=== PATIENT | female | born 1945 ===

== ENCOUNTER → 2019-12-21 09:03 | Outpatient (CLI) | payer MEDICARE, OTHER, SELFPAY ==
[2019-12-21 09:57] LABS: Add Manual Diff / Slide Review NO; Basophils Absolute Auto 0 /uL (0-100); Basophils Percent Auto 0.3 % (0-2); Eosinophils Absolute Auto 100 /uL (0-450); Eosinophils Percent Auto 2.3 % (2-4); Hematocrit 39.4 % (36-46); Hemoglobin 13.3 g/dL (12.0-16.0); Lymphocytes Absolute Auto 1700 /uL (1100-4500); Lymphocytes Percent Auto 33.2 % (25-40); Mean Corpuscular HGB Conc 33.8 % (30-36); Mean Corpuscular Hemoglobin 31.4 PG (26-34); Mean Corpuscular Volume 93.1 fL (80-100); Monocytes Absolute Auto 300 /uL (0-900); Monocytes Percent Auto 6.1 % (3-14); Neutrophils Absolute Auto 3000 /uL (1500-7000); Neutrophils Percent Auto 58.1 % (50-75); Platelet Count 244 X10^3/uL (150-400); Red Blood Cell Count 4.23 X10^6/uL (4.0-5.2); Red Cell Distribution Width 13.7 % (11.6-14.8); White Blood Cell Count 5.2 X10^3/uL (4.5-11.0)
[2019-12-21 10:03] LABS: Alanine Aminotransferase 46 IU/L (<35); Albumin 3.9 g/dL (3.5-5.0); Albumin Globulin Ratio 1.3 (1.0-2.8); Alkaline Phosphatase 84 U/L (38-126); Aspartate Aminotransferase 39 IU/L (14-36); Bilirubin Total 0.4 mg/dL (0.2-1.3); Blood Urea Nitrogen 15 mg/dL (7-17); Calcium 8.7 mg/dL (8.4-10.2); Carbon Dioxide 30 mmol/L (22-32); Chloride 105 mmol/L (98-107); Cholesterol 207 mg/dL (140-199); Estimated Glomerular Filt Rate > 60.0 mL/min (>60); Globulin 2.9 g/dL (1.7-4.1); Glucose 106 mg/dL (80-110); HDL Cholesterol 93 mg/dL (40-60); HEMOLYSIS < 15 (0-50); LDL Cholesterol Calculated 94 mg/dL (<100); Potassium 4.4 mmol/L (3.4-5.1); Sodium 138 mmol/L (137-145); Total Protein 6.8 g/dL (6.3-8.2); Triglycerides 100 mg/dL (35-150)
[2019-12-21 10:36] LABS: TSH w/ Reflex to FT4 1.85 uIU/mL (0.47-4.68)
== END ==
PROVIDERS: PCP Student in an Organized Health Care Education/Training Program; Referring Provider Student in an Organized Health Care Education/Training Program; Visit Provider Student in an Organized Health Care Education/Training Program
DX: E78.2 Mixed hyperlipidemia (principal); F34.1 Dysthymic disorder; R53.83 Other fatigue
CPT/HCPCS: 36415; 80053; 80061; 84443; 85025

== ENCOUNTER → 2020-02-22 08:40 | Outpatient (CLI) | payer MEDICARE, OTHER, SELFPAY ==
[2020-02-22 09:53] LABS: Alanine Aminotransferase 30 IU/L (<35); Albumin 3.8 g/dL (3.5-5.0); Albumin Globulin Ratio 1.2 (1.0-2.8); Alkaline Phosphatase 85 U/L (38-126); Aspartate Aminotransferase 28 IU/L (14-36); Bilirubin Total 0.3 mg/dL (0.2-1.3); Bilirubin Unconjugated 0.2 mg/dL (0.0-1.1); Globulin 3.1 g/dL (1.7-4.1); HEMOLYSIS < 15 (0-50); Total Protein 6.9 g/dL (6.3-8.2)
== END ==
PROVIDERS: PCP Student in an Organized Health Care Education/Training Program; Referring Provider Student in an Organized Health Care Education/Training Program; Visit Provider Student in an Organized Health Care Education/Training Program
DX: R74.8 Abnormal levels of other serum enzymes (principal)
CPT/HCPCS: 36415; 80076

== ENCOUNTER → 2021-03-10 07:00 | Outpatient (CLI) | payer MEDICARE, BC, SELFPAY ==
[2021-03-10 07:46] LABS: Add Manual Diff / Slide Review NO; Basophils Absolute Auto 0 /uL (0-100); Basophils Percent Auto 0.1 % (0-2); Eosinophils Absolute Auto 0 /uL (0-450); Eosinophils Percent Auto 0.6 % (2-4); Hematocrit 38.9 % (36-46); Hemoglobin 12.9 g/dL (12.0-16.0); Lymphocytes Absolute Auto 1800 /uL (1100-4500); Lymphocytes Percent Auto 30.1 % (25-40); Mean Corpuscular HGB Conc 33.1 % (30-36); Mean Corpuscular Hemoglobin 30.5 PG (26-34); Mean Corpuscular Volume 92.1 fL (80-100); Monocytes Absolute Auto 400 /uL (0-900); Monocytes Percent Auto 7.3 % (3-14); Neutrophils Absolute Auto 3600 /uL (1500-7000); Neutrophils Percent Auto 61.9 % (50-75); Platelet Count 224 X10^3/uL (150-400); Red Blood Cell Count 4.23 X10^6/uL (4.0-5.2); Red Cell Distribution Width 13.3 % (11.6-14.8); White Blood Cell Count 5.9 X10^3/uL (4.5-11.0)
[2021-03-10 08:10] LABS: Alanine Aminotransferase 36 IU/L (<35); Albumin 3.8 g/dL (3.5-5.0); Albumin Globulin Ratio 1.4 (1.0-2.8); Alkaline Phosphatase 90 U/L (38-126); Aspartate Aminotransferase 31 IU/L (14-36); BUN Creatinine Ratio 19.5 (6-22); Bilirubin Total 0.2 mg/dL (0.2-1.3); Blood Urea Nitrogen 15 mg/dL (7-17); Calcium 8.9 mg/dL (8.4-10.2); Carbon Dioxide 31 mmol/L (22-32); Chloride 102 mmol/L (98-107); Cholesterol 189 mg/dL (140-199); Estimated Glomerular Filt Rate > 60.0 mL/min (>60); Globulin 2.7 g/dL (1.7-4.1); Glucose 100 mg/dL (80-110); HDL Cholesterol 96 mg/dL (40-60); HEMOLYSIS < 15 (0-50); LDL Cholesterol Calculated 76 mg/dL (<100); Potassium 4.9 mmol/L (3.4-5.1); Sodium 138 mmol/L (137-145); Total Protein 6.5 g/dL (6.3-8.2); Triglycerides 85 mg/dL (35-150)
[2021-03-12 03:07] LABS: HCV AB <0.1 s/co ratio (0.0-0.9)
== END ==
PROVIDERS: PCP Student in an Organized Health Care Education/Training Program; Referring Provider Student in an Organized Health Care Education/Training Program; Visit Provider Student in an Organized Health Care Education/Training Program
DX: E78.2 Mixed hyperlipidemia (principal); Z11.59 Encounter for screening for other viral diseases
CPT/HCPCS: 36415; 80053; 80061; 85025; 86803

== ENCOUNTER → 2021-10-07 15:04 | Outpatient (CLI) | payer MEDICARE, OTHER, SELFPAY ==
--- NOTE | 2021-10-07 15:10 | DI.RAD.S_ITS ---
PROCEDURE: XR THORACIC SPINE 3V INDICATIONS: Dorsalgia, unspecified TECHNIQUE: 3 views of the thoracic spine were acquired. COMPARISON: None. FINDINGS: Bones: No fractures or dislocations. No suspicious bony lesions. 12 pairs of ribs are noted, and appear intact where visualized. Mild dextrocurvature centered at the lower thoracic level. Mild multilevel disc space narrowing with endplate sclerosis and spurring, most notably involving the upper lumbar spine. Soft tissues: No paravertebral stripe thickening. 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 Dictated by: Perry Maharaj [facility] Interpreted: Shahida Wong MD on 10/07/2021 at 15:47 Transcribed by: LIZA on 10/07/2021 at 15:48 Approved by: Shahida Wong M.D. on 10/07/2021 at 17:11
== END ==
PROVIDERS: PCP Student in an Organized Health Care Education/Training Program; Referring Provider Student in an Organized Health Care Education/Training Program; Visit Provider Student in an Organized Health Care Education/Training Program
DX: M51.34 Other intervertebral disc degeneration, thoracic region (principal); M54.9 Dorsalgia, unspecified
CPT/HCPCS: 72070

== ENCOUNTER 2022-07-28 22:37 | Emergency (ER) | payer MEDICARE, OTHER, SELFPAY ==
[2022-07-28 23:03] VITALS: BP 129/80; PULSE 73; RESP 18; TEMP 36.3; O2SAT 97
--- NOTE | 2022-07-29 01:03 | ED.BACK ---
HPI - Back Pain/Injury General Chief Complaint: Back Pain/Injury Stated Complaint: muscle pain, nerve pain Time Seen by Provider: 07/28/22 22:40 Source: patient History of Present Illness HPI Narrative: 76-year-old female nonsmoker with out any significant chronic medical history presents with a chief complaint of pain in her right upper back that is sharp and stabbing, worse with motion and improves with rest. She had been seen by massage therapy friends in the past who were able to work out the not but she was unable to get in and presents here today hoping for help with pain control. She denies numbness, tingling or weakness. She is had no fever or chills and denies the use of blood thinners. She is otherwise well and denies chest pain or shortness of breath. She has no nausea, vomiting or diarrhea Related Data Home Medications Medication Instructions Recorded Confirmed PRIMIDONE (Mysoline) ##0 09/14/09 08/25/21 estradiol 0.5 mg tablet ##0 07/31/11 08/25/21 CA PANTOTHENATE/FOLIC ACID/VIT 1 tab PO QDAY ##0 02/26/12 08/25/21 (MULTIVITAMIN) rosuvastatin 10 mg tablet (Crestor) 10 mg PO QDAY ##0 03/02/12 08/25/21 cholecalciferol (vitamin D3) 50 50 mcg PO DAILY 03/12/20 08/25/21 mcg (2,000 unit) capsule diazepam 5 mg tablet (Valium) 5 mg PO HSP PRN ##0 03/12/20 08/25/21 Previous Rx's Medication Instructions Recorded estradiol 0.5 mg tablet 0.5 mg PO DAILY #90 tabs 03/15/20 cyclobenzaprine 10 mg tablet 10 mg PO TID PRN muscle spasm #14 07/29/22 tabs hydrocodone 5 mg-acetaminophen 325 1 tab PO Q4-6H PRN pain #10 tabs 07/29/22 mg tablet ketorolac 10 mg tablet 10 mg PO Q6H PRN pain #14 tabs 07/29/22 lidocaine 5 % topical patch 1 patch topical DAILY #15 ea 07/29/22 (Lidoderm) lidocaine 5 % topical patch 1 patch topical DAILY PRN muscle 07/30/22 (Lidoderm) pain #15 ea methocarbamol 500 mg tablet 500 mg PO TID #9 tabs 07/30/22 oxycodone-acetaminophen 5 mg-325 1 tab PO Q6H PRN pain #10 tabs 07/30/22 mg tablet (Percocet) Allergies Allergy/AdvReac Type Severity Reaction Status Date / Time aspirin [ASPIRIN] Allergy Unknown Verified 07/30/22 09:57 Review of Systems Review of Systems Narrative: GENERAL: Denies chills, fatigue, malaise, fever, sweats. HEENT: Denies sinus pain, ear pain, sore throat, difficulty swallowing, dizziness. RESPIRATORY: Denies dyspnea, cough, wheezing, hemoptysis, sputum. CARDIOVASCULAR: Denies chest pain, palpitations, orthopnea, edema, GASTROINTESTINAL: Denies nausea, vomiting, abdominal pain, diarrhea, constipation, melena. : Denies dysuria, frequency, incontinence, hematuria, urinary retention. MUSCULOSKELETAL: See HPI SKIN: Denies rash, skin lesions, or other NEUROLOGIC: Denies weakness, headache, numbness, change in speech, confusion, seizures, incoordination. PSYCHIATRIC: No concerning psychosocial issues. 12 point review of systems is negative except for those stated above Patient History Medical History Abnormal Pap smear of cervix (~10/21/00) Benign familial tremor Carpal tunnel syndrome (~1983) Chicken pox (~1948) Chlamydia (~1982) Chronic back pain (~2009) Chronic cough (~2009) Depression (~195) Genital warts (~1970) Headache Hearing loss (~2017) Hemorrhoid (~1979) History of irregular menstrual cycles (~1989) Hormone replacement therapy Hyperlipidemia (~2002) Measles (~194) Mumps (~194) Osteopenia Osteoporosis (~2010) Plantar warts (~1965) Shoulder pain Surgical History Anesthesia History of bunionectomy (~1989) History of cataract removal with insertion of prosthetic lens Intestinal adhesions (~02/2012) S/P cervical spinal fusion (~2009) S/P lumbar fusion (~01/2012) Family History Father Cirrhosis of liver Social History Smoking Status: Never smoker Smoking Status: Never smoker alcohol intake frequency: a few times a month Substance Use Type: does not use Exam Narrative Exam Narrative: GENERAL: [76] year old patient appears stated age. Well-developed patient, in mild distress. HEAD: Atraumatic. Normocephalic. EYES: Pupils equal round and reactive. Extraocular motions intact. No scleral icterus. No injection or drainage. ENT: Nose without bleeding, purulent drainage. Throat without erythema, tonsillar hypertrophy or exudate. Airway patent. NECK: Trachea midline. Non tender, no midline tenderness, no change with axial loading. CARDIOVASCULAR: Regular rate and rhythm without murmurs, gallops, or rubs. RESPIRATORY: Clear to auscultation. Breath sounds equal bilaterally. No wheezes, rales, or rhonchi. GASTROINTESTINAL: Abdomen soft, non-tender, nondistended. EXTREMITIES: No edema or joint tenderness. BACK: Reproducible and palpable tender region in the paraspinal musculature right of the midline in the mid to upper Thoracics. No redness, warmth, induration or fluctuance NEURO: AOx3. SKIN: No rash or erythema of visible areas Initial Vital Signs Initial Vital Signs: Vital Signs Temperature 97.3 F L 07/28/22 23:03 Pulse Rate 73 07/28/22 23:03 Respiratory Rate 18 07/28/22 23:03 Blood Pressure 129/80 07/28/22 23:03 Pulse Oximetry 97 07/28/22 23:03 Oxygen Delivery Method Room Air 07/28/22 23:03 Course Orders Ordered: Discontinued Medications Hydrocodone Bitart/Acetaminophen (Hydrocodone/Acet 5/325 Prepack) 1 bottle MISC SEEINSTR ONE Stop: 07/29/22 01:11 Last Admin: 07/29/22 01:26 Dose: 1 bottle Documented By: GC Cyclobenzaprine HCl (Cyclobenzaprine 10 Mg Prepack) 1 bottle MISC SEEINSTR ONE Stop: 07/29/22 01:11 Last Admin: 07/29/22 01:26 Dose: 1 bottle Documented By: GC Ketorolac Tromethamine (Ketorolac 30 Mg/Ml Vial) 30 mg IM NOW ONE Stop: 07/29/22 01:11 Last Admin: 07/29/22 01:27 Dose: 30 mg Documented By: GC Lidocaine (Lidocaine Patch 1 Each Adh..Patch) 1 each TOP NOW ONE Stop: 07/29/22 01:11 Last Admin: 07/29/22 01:26 Dose: 1 each Documented By: TONE Vital Signs Vital signs: Vital Signs - 8 hr 07/28/22 23:03 Temperature 97.3 F L Pulse Rate 73 Respiratory Rate 18 Blood Pressure 129/80 Pulse Oximetry 97 Oxygen Delivery Method Room Air MDM - Back Pain/Injury MDM Narrative Medical decision making narrative: [76] year old patient presents with musculoskeletal pain of her upper back in the absence of any significant trauma Multiple etiologies for patient's symptoms considered including, but not limited to: [Muscle spasm, inflammation, less likely cellulitis versus other] Prior Charts reviewed in our EMR Primary Historian: patient Patient's symptoms improved over duration of stay with above-stated therapies. History and physical exam are reassuring and highly suggestive of musculoskeletal issue, most likely spasm. Other diagnoses mentioned above considered but thought less likely given elements of history and physical exam Findings and discharge diagnosis discussed with patient/family followed by verbalization of understanding Return precautions discussed with patient/family whom verbalize understanding of diagnosis and plan Discharge Plan Departure Patient Disposition: Home Clinical Impression: Spasm of thoracic back muscle Instructions: DI for Back Spasm Activity Restrictions/Additional Instructions: *You have been diagnosed with [thoracic muscle strain] *What to do: *Please continue to take your regular medications as directed. [ ] New medication prescriptions sent to your pharmacy: [ ] [ ] New medication written as a paper prescription [ ] No new medications given *Please follow up with your primary care provider in 2-3 days, call for an appointment. Let them know you were seen in the Emergency Department and that we ask that you be seen in follow up. We will electronically transmit a record of today's note if your PCP is in our system *If you do not have a primary care provider please contact the [facility] Resource line at [phone]. They will ask some questions about your medical history and help get you set up with a doctor in the community. *Return to Emergency Department if you should have any new, worsening or concerning symptoms, such as [fever greater than 101 F, shaking chills, worsening pain, persistent vomiting or other bothersome symptoms] Prescriptions: New cyclobenzaprine 10 mg tablet 10 mg PO TID PRN (Reason: muscle spasm) Qty: 14 0RF hydrocodone-acetaminophen 5-325 mg tablet 1 tab PO Q4-6H PRN (Reason: pain) Qty: 10 0RF ketorolac 10 mg tablet 10 mg PO Q6H PRN (Reason: pain) Qty: 14 0RF lidocaine [Lidoderm] 5 % adhesive patch,medicated 1 patch TOP DAILY Qty: 15 0RF Rx Instructions: leave on most painful area for 12 hrs No Action PRIMIDONE (Mysoline) Qty: 0 estradiol 0.5 MG tablet Qty: 0 CA PANTOTHENATE/FOLIC ACID/VIT (MULTIVITAMIN) 1 tab PO QDAY Qty: 0 rosuvastatin [Crestor] 10 MG tablet 10 mg PO QDAY Qty: 0 diazepam [Valium] 5 mg tablet 5 mg PO HSP PRNQty: 0 estradiol 0.5 mg tablet 0.5 mg PO DAILY Qty: 90 0RF Rx Instructions: Take one tablet by mouth once a day. cholecalciferol (vitamin D3) 50 mcg (2,000 unit) capsule 50 mcg PO DAILY oxycodone-acetaminophen [Percocet] 5-325 mg tablet 1 tab PO Q6H PRN (Reason: pain) Qty: 10 0RF lidocaine [Lidoderm] 5 % adhesive patch,medicated 1 patch topical DAILY PRN (Reason: muscle pain) Qty: 15 0RF Rx Instructions: leave on most painful area for up to 12 hrs methocarbamol 500 mg tablet 500 mg PO TID Qty: 9 0RF Referrals: Agnes Scott PA-C [Primary Care Provider] - Stand Alone Forms: Patient Portal/API
[2022-07-29] MEDS: CYCLOBENZAPRINE 10 MG PREPACK 1 BOTTLE MISC (01:26)
[2022-07-29] MEDS: HYDROCODONE/ACET 5/325 PREPACK 1 BOTTLE MISC (01:26)
[2022-07-29] MEDS: LIDOCAINE PATCH 1 EACH ADH..PATCH TOP (01:26)
[2022-07-29] MEDS: KETOROLAC 30 MG/ML VIAL IM (01:27)
== END 2022-07-29 01:55 | disposition home or self-care (01) ==
PROVIDERS: Emergency Provider Emergency Medicine; PCP Student in an Organized Health Care Education/Training Program
DX: M62.830 Muscle spasm of back (principal); R07.9 Chest pain, unspecified
CPT/HCPCS: 93005; 96372; 99283; J1885

== ENCOUNTER 2022-07-29 10:04 | Emergency (ER) | payer MEDICARE, OTHER, SELFPAY ==
[2022-07-29 10:10] VITALS: BP 175/81; PULSE 75; RESP 18; TEMP 36.5; O2SAT 98; BMI 26.5
--- NOTE | 2022-07-29 10:51 | DI.RAD.S_ITS ---
PROCEDURE: XR CHEST 2V INDICATIONS: back pain TECHNIQUE: 2 views of the chest were acquired. COMPARISON: None. FINDINGS: Surgical changes and devices: None. Lungs and pleura: Lung volumes are low. Lungs are clear. No pleural effusions or pneumothorax. Mediastinum: Mediastinal contours are normal. Heart size is normal. Bones and chest wall: No suspicious bony abnormalities. Soft tissues appear unremarkable. IMPRESSION: Low lung volumes. No acute cardiopulmonary findings. Dictated by: Peace Montoya M.D. on 07/29/2022 at 11:30 Approved by: Peace Montoya M.D. on 07/29/2022 at 11:34
[2022-07-29] MEDS: KETOROLAC 30 MG/ML VIAL IM (11:04)
[2022-07-29] MEDS: HYDROMORPHONE 1 MG INJ IM (11:04)
[2022-07-29 11:50] VITALS: BP 167/76; PULSE 79; O2SAT 98
--- NOTE | 2022-08-03 09:45 | ED.EXTPRO ---
HPI - Extremity Problem General Chief complaint: Extremity Problem,Nontraumatic Stated complaint: back/rt arm pain getting worse Time Seen by Provider: 07/29/22 10:19 Source: patient Mode of arrival: Ambulatory History of Present Illness HPI Narrative: 76-year-old female presenting with right-sided arm pain and associated back pain that has been worsening over the last several days. Patient is concerned for pinched nerve versus strain of her musculoskeletal system. Patient was seen in this emergency department yesterday with similar symptoms. Patient does report a history of similar that has resolved with massage therapy. Patient concerned that she moved in an improper way that caused symptoms. No associated chest pain or shortness of breath. No focal weakness or numbness. Patient had improvement in symptoms, however, symptoms returned and she presents for repeat evaluation. Related Data Home Medications Medication Instructions Recorded Confirmed PRIMIDONE (Mysoline) ##0 09/14/09 08/25/21 estradiol 0.5 mg tablet ##0 07/31/11 08/25/21 CA PANTOTHENATE/FOLIC ACID/VIT 1 tab PO QDAY ##0 02/26/12 08/25/21 (MULTIVITAMIN) rosuvastatin 10 mg tablet (Crestor) 10 mg PO QDAY ##0 03/02/12 08/25/21 cholecalciferol (vitamin D3) 50 50 mcg PO DAILY 03/12/20 08/25/21 mcg (2,000 unit) capsule diazepam 5 mg tablet (Valium) 5 mg PO HSP PRN ##0 03/12/20 08/25/21 Previous Rx's Medication Instructions Recorded estradiol 0.5 mg tablet 0.5 mg PO DAILY #90 tabs 03/15/20 cyclobenzaprine 10 mg tablet 10 mg PO TID PRN muscle spasm #14 07/29/22 tabs hydrocodone 5 mg-acetaminophen 325 1 tab PO Q4-6H PRN pain #10 tabs 07/29/22 mg tablet ketorolac 10 mg tablet 10 mg PO Q6H PRN pain #14 tabs 07/29/22 lidocaine 5 % topical patch 1 patch topical DAILY #15 ea 07/29/22 (Lidoderm) lidocaine 5 % topical patch 1 patch topical DAILY PRN muscle 07/30/22 (Lidoderm) pain #15 ea methocarbamol 500 mg tablet 500 mg PO TID #9 tabs 07/30/22 oxycodone-acetaminophen 5 mg-325 1 tab PO Q6H PRN pain #10 tabs 07/30/22 mg tablet (Percocet) Allergies Allergy/AdvReac Type Severity Reaction Status Date / Time aspirin [ASPIRIN] Allergy Unknown Verified 07/30/22 09:57 Patient History Medical History Abnormal Pap smear of cervix (~10/21/00) Benign familial tremor Carpal tunnel syndrome (~1983) Chicken pox (~1948) Chlamydia (~1982) Chronic back pain (~2009) Chronic cough (~2009) Depression (~1957) Genital warts (~1969) Headache Hearing loss (~2017) Hemorrhoid (~1979) History of irregular menstrual cycles (~1989) Hormone replacement therapy Hyperlipidemia (~2002) Measles (~1948) Mumps (~1948) Osteopenia Osteoporosis (~2010) Plantar warts (~1965) Shoulder pain Surgical History Anesthesia History of bunionectomy (~1989) History of cataract removal with insertion of prosthetic lens Intestinal adhesions (~02/2012) S/P cervical spinal fusion (~2009) S/P lumbar fusion (~01/2012) Family History Father Cirrhosis of liver Social History Smoking Status: Never smoker Smoking Status: Never smoker alcohol intake frequency: a few times a month Substance Use Type: does not use Exam Narrative Exam Narrative: Vitals reviewed. Nursing note reviewed Constitutional: interactive HENT: Moist mucous membranes EYES: No scleral icterus NECK: no masses CV: Well perfused peripherally, no cyanosis present PULM: Unlabored respirations, symmetric chest rise ABD: Non-distended MS: No gross deformities, no asymmetric edema noted SKIN: Warm and dry. PSYCH: Appropriate affect NEURO: Follows simple commands, moves extremities, interactive with exam Initial Vital Signs Initial Vital Signs: Vital Signs Temperature 97.7 F 07/29/22 10:10 Pulse Rate 75 07/29/22 10:10 Respiratory Rate 18 07/29/22 10:10 Blood Pressure 175/81 H 03/02/23 10:10 Pulse Oximetry 98 07/29/22 10:10 Oxygen Delivery Method Room Air 07/29/22 10:10 Course Orders Ordered: Discontinued Medications Hydromorphone HCl (Hydromorphone 1 Mg Inj) 1 mg IM NOW ONE Stop: 07/29/22 10:52 Last Admin: 07/29/22 11:04 Dose: 1 mg Documented By: ALFRED Ketorolac Tromethamine (Ketorolac 30 Mg/Ml Vial) 30 mg IM NOW ONE Stop: 07/29/22 10:52 Last Admin: 07/29/22 11:04 Dose: 30 mg Documented By: ALFRED MDM - Extremity (Nontraumatic) MDM Narrative Medical decision making narrative: 76-year-old female presenting with isolated right-sided back pain and right upper extremity pain in the setting of multiple episodes of similar, recent evaluation in this emergency department over the last 12 hours for same symptoms. On presentation, vital signs notable for hypertension otherwise reassuring. Physical exam notable for well-appearing 76-year-old female who is in no acute distress, grossly reassuring cardiopulmonary exam, benign abdomen. No focal neurologic deficits, patient with reassuring MSK exam. Initial concern for MSK strain, radiculopathy, cord compression, occult ACS, pneumothorax, costochondritis, infectious etiology, mass lesion. Chest x-ray obtained and reassuring on my initial read. EKG without evidence of acute ischemia on my initial read. Patient's pain was controlled with IM hydromorphone. On repeat evaluation, patient with significant improvement in symptoms. Low suspicion for acute emergent pathology given patient with multiple prior presentations for similar with symptoms resolving with massage therapy. Suspect MSK strain versus radiculopathy. Discussed plan for conservative outpatient management and follow up, return precautions were discussed. Discharge Plan Departure Patient Disposition: Home Clinical Impression: Back pain Activity Restrictions/Additional Instructions: *You have been diagnosed with back pain. *What to do: *Please continue to take your regular medications as directed. Please follow up later in the day with your therapist as discussed. Please return to the emergency department if you develop any new or worsening symptoms. *Please follow up with your primary care provider in 2-3 days, call for an appointment. Let them know you were seen in the Emergency Department and that we ask that you be seen in follow up. We will electronically transmit a record of today's note if your PCP is in our system *If you do not have a primary care provider please contact the [facility] Resource line at [phone]. They will ask some questions about your medical history and help get you set up with a doctor in the community. *Return to Emergency Department if you should have any new, worsening or concerning symptoms, such as [fever greater than 101 F, shaking chills, worsening pain, persistent vomiting or other bothersome symptoms] Prescriptions: No Action PRIMIDONE (Mysoline) Qty: 0 estradiol 0.5 MG tablet Qty: 0 CA PANTOTHENATE/FOLIC ACID/VIT (MULTIVITAMIN) 1 tab PO QDAY Qty: 0 rosuvastatin [Crestor] 10 MG tablet 10 mg PO QDAY Qty: 0 diazepam [Valium] 5 mg tablet 5 mg PO HSP PRNQty: 0 estradiol 0.5 mg tablet 0.5 mg PO DAILY Qty: 90 0RF Rx Instructions: Take one tablet by mouth once a day. cholecalciferol (vitamin D3) 50 mcg (2,000 unit) capsule 50 mcg PO DAILY cyclobenzaprine 10 mg tablet 10 mg PO TID PRN (Reason: muscle spasm) Qty: 14 0RF hydrocodone-acetaminophen 5-325 mg tablet 1 tab PO Q4-6H PRN (Reason: pain) Qty: 10 0RF ketorolac 10 mg tablet 10 mg PO Q6H PRN (Reason: pain) Qty: 14 0RF lidocaine [Lidoderm] 5 % adhesive patch,medicated 1 patch TOP DAILY Qty: 15 0RF Rx Instructions: leave on most painful area for 12 hrs oxycodone-acetaminophen [Percocet] 5-325 mg tablet 1 tab PO Q6H PRN (Reason: pain) Qty: 10 0RF lidocaine [Lidoderm] 5 % adhesive patch,medicated 1 patch topical DAILY PRN (Reason: muscle pain) Qty: 15 0RF Rx Instructions: leave on most painful area for up to 12 hrs methocarbamol 500 mg tablet 500 mg PO TID Qty: 9 0RF Referrals: Agnes Scott PA-C [Primary Care Provider] - Stand Alone Forms: Patient Portal/API
== END 2022-07-29 12:20 | disposition home or self-care (01) ==
PROVIDERS: Emergency Provider Emergency Medicine; PCP Student in an Organized Health Care Education/Training Program
DX: M54.9 Dorsalgia, unspecified (principal); M79.601 Pain in right arm
CPT/HCPCS: 71046; 96372; 99283; J1170; J1885

== ENCOUNTER 2022-07-30 09:41 | Emergency (ER) | payer MEDICARE, OTHER, SELFPAY ==
[2022-07-30 09:57] VITALS: BP 171/89; PULSE 88; RESP 15; TEMP 36.6; O2SAT 96; BMI 26.5
--- NOTE | 2022-07-30 10:47 | ED.EXTPRO ---
HPI - Extremity Problem General Chief complaint: Extremity Problem,Nontraumatic Stated complaint: radiating pain RT upper arm here T-2, T-1 Source: patient Mode of arrival: Ambulatory Related Data Home Medications Medication Instructions Recorded Confirmed PRIMIDONE (Mysoline) ##0 09/14/09 08/25/21 estradiol 0.5 mg tablet ##0 07/31/11 08/25/21 CA PANTOTHENATE/FOLIC ACID/VIT 1 tab PO QDAY ##0 02/26/12 08/25/21 (MULTIVITAMIN) rosuvastatin 10 mg tablet (Crestor) 10 mg PO QDAY ##0 03/02/12 08/25/21 cholecalciferol (vitamin D3) 50 50 mcg PO DAILY 03/12/20 08/25/21 mcg (2,000 unit) capsule diazepam 5 mg tablet (Valium) 5 mg PO HSP PRN ##0 03/12/20 08/25/21 Previous Rx's Medication Instructions Recorded estradiol 0.5 mg tablet 0.5 mg PO DAILY #90 tabs 03/15/20 cyclobenzaprine 10 mg tablet 10 mg PO TID PRN muscle spasm #14 07/29/22 tabs hydrocodone 5 mg-acetaminophen 325 1 tab PO Q4-6H PRN pain #10 tabs 07/29/22 mg tablet ketorolac 10 mg tablet 10 mg PO Q6H PRN pain #14 tabs 07/29/22 lidocaine 5 % topical patch 1 patch topical DAILY #15 ea 07/29/22 (Lidoderm) Allergies Allergy/AdvReac Type Severity Reaction Status Date / Time aspirin [ASPIRIN] Allergy Unknown Verified 07/30/22 09:57 Patient History Medical History (Updated 07/29/22 @ 12:00 by Yuriy Watson MD) Abnormal Pap smear of cervix (~10/21/00) Benign familial tremor Carpal tunnel syndrome (~1983) Chicken pox (~1948) Chlamydia (~1982) Chronic back pain (~2009) Chronic cough (~2009) Depression (~1957) Genital warts (~1969) Headache Hearing loss (~2017) Hemorrhoid (~1979) History of irregular menstrual cycles (~1989) Hormone replacement therapy Hyperlipidemia (~2002) Measles (~1948) Mumps (~1948) Osteopenia Osteoporosis (~2010) Plantar warts (~1965) Shoulder pain Surgical History (Updated 03/21/20 @ 18:34 by Zuleima Figueroa) Anesthesia History of bunionectomy (~1989) History of cataract removal with insertion of prosthetic lens Intestinal adhesions (~02/2012) S/P cervical spinal fusion (~2009) S/P lumbar fusion (~01/2012) Family History (Updated 03/21/20 @ 18:36 by Zuleima Figueroa) Father Cirrhosis of liver Social History Smoking Status: Never smoker Smoking Status: Never smoker alcohol intake frequency: a few times a week Substance Use Type: does not use Exam Initial Vital Signs Initial Vital Signs: Vital Signs Temperature 97.9 F 07/30/22 09:57 Pulse Rate 88 07/30/22 09:57 Respiratory Rate 15 07/30/22 09:57 Blood Pressure 171/89 H 07/30/22 09:57 Pulse Oximetry 96 07/30/22 09:57 Oxygen Delivery Method Room Air 07/30/22 09:57 Course Vital Signs Vital signs: Vital Signs - 8 hr 07/30/22 09:57 Temperature 97.9 F Pulse Rate 88 Respiratory Rate 15 Blood Pressure 171/89 H Pulse Oximetry 96 Oxygen Delivery Method Room Air Discharge Plan Departure Prescriptions: No Action PRIMIDONE (Mysoline) Qty: 0 estradiol 0.5 MG tablet Qty: 0 CA PANTOTHENATE/FOLIC ACID/VIT (MULTIVITAMIN) 1 tab PO QDAY Qty: 0 rosuvastatin [Crestor] 10 MG tablet 10 mg PO QDAY Qty: 0 diazepam [Valium] 5 mg tablet 5 mg PO HSP PRNQty: 0 estradiol 0.5 mg tablet 0.5 mg PO DAILY Qty: 90 0RF Rx Instructions: Take one tablet by mouth once a day. cholecalciferol (vitamin D3) 50 mcg (2,000 unit) capsule 50 mcg PO DAILY cyclobenzaprine 10 mg tablet 10 mg PO TID PRN (Reason: muscle spasm) Qty: 14 0RF hydrocodone-acetaminophen 5-325 mg tablet 1 tab PO Q4-6H PRN (Reason: pain) Qty: 10 0RF ketorolac 10 mg tablet 10 mg PO Q6H PRN (Reason: pain) Qty: 14 0RF lidocaine [Lidoderm] 5 % adhesive patch,medicated 1 patch TOP DAILY Qty: 15 0RF Rx Instructions: leave on most painful area for 12 hrs Referrals: Agnes Scott PA-C [Primary Care Provider] -
--- NOTE | 2022-07-30 12:59 | ED_ITS ---
HPI - Extremity Problem <Nitesh BrandLISA barron - Last Filed: 07/30/22 14:10> General Chief complaint: Extremity Problem,Nontraumatic Stated complaint: radiating pain RT upper arm here T-2, T-1 Time Seen by Provider: 07/30/22 12:38 Source: patient Mode of arrival: Ambulatory History of Present Illness HPI Narrative: 76-year-old female, never smoker, presents to the emergency department with persistent right upper back strain x3 days. Patient endorses that she has had these ?knots? in her right upper back that is usually relieved with deep tissue massage. Massage was unsuccessful at relieving her pain and presented to the emergency department 36 hours ago for treatment. Patient was prescribed hydrocodone, Toradol, Flexeril and lidocaine patches. Patient was given a injection of Toradol and then left before receiving her discharge note. Patient reports that the pain did not improve and then returned to the emergency department 26 hours ago for identical symptoms. Patient was given a injection of Dilaudid and patient was discharged home. Patient states that the pain returned and received a deep tissue massage last night but did not improve her pain. Patient is now stating that she is feeling the pain radiating down her right arm. Related Data Home Medications Medication Instructions Recorded Confirmed PRIMIDONE (Mysoline) ##0 09/14/09 08/25/21 estradiol 0.5 mg tablet ##0 07/31/11 08/25/21 CA PANTOTHENATE/FOLIC ACID/VIT 1 tab PO QDAY ##0 02/26/12 08/25/21 (MULTIVITAMIN) rosuvastatin 10 mg tablet (Crestor) 10 mg PO QDAY ##0 03/02/12 08/25/21 cholecalciferol (vitamin D3) 50 50 mcg PO DAILY 03/12/20 08/25/21 mcg (2,000 unit) capsule diazepam 5 mg tablet (Valium) 5 mg PO HSP PRN ##0 03/12/20 08/25/21 Previous Rx's Medication Instructions Recorded estradiol 0.5 mg tablet 0.5 mg PO DAILY #90 tabs 03/15/20 cyclobenzaprine 10 mg tablet 10 mg PO TID PRN muscle spasm #14 07/29/22 tabs hydrocodone 5 mg-acetaminophen 325 1 tab PO Q4-6H PRN pain #10 tabs 07/29/22 mg tablet ketorolac 10 mg tablet 10 mg PO Q6H PRN pain #14 tabs 07/29/22 lidocaine 5 % topical patch 1 patch topical DAILY #15 ea 07/29/22 (Lidoderm) lidocaine 5 % topical patch 1 patch topical DAILY PRN muscle 07/30/22 (Lidoderm) pain #15 ea methocarbamol 500 mg tablet 500 mg PO TID #9 tabs 07/30/22 oxycodone-acetaminophen 5 mg-325 1 tab PO Q6H PRN pain #10 tabs 07/30/22 mg tablet (Percocet) Allergies Allergy/AdvReac Type Severity Reaction Status Date / Time aspirin [ASPIRIN] Allergy Unknown Verified 07/30/22 09:57 Review of Systems <LISA Landaverde - Last Filed: 07/30/22 14:10> Review of Systems Narrative: Narrative: See HPI. GENERAL: Denies chills, fatigue, fever, sweats. HEENT: Denies sinus pain, ear pain, sore throat, difficulty swallowing, dizziness. RESPIRATORY: Denies dyspnea, cough, wheezing, sputum. CARDIOVASCULAR: Denies chest pain, palpitations, edema. GASTROINTESTINAL: Denies nausea, vomiting, abdominal pain, diarrhea, constipation. : Denies dysuria, frequency, incontinence, hematuria, urinary retention, flank pain. MSK: Denies weakness, joint pain, or bony pain. Endorses right upper back pain radiating down right arm. SKIN: Denies rash, skin lesions, or pruritis. NEUROLOGIC: Denies weakness, dizziness, headache, numbness, confusion. PSYCHIATRIC: No concerning psychosocial issues. Patient History <LISA Landaverde - Last Filed: 07/30/22 14:10> Medical History Abnormal Pap smear of cervix (~10/21/00) Benign familial tremor Carpal tunnel syndrome (~1983) Chicken pox (~1948) Chlamydia (~1982) Chronic back pain (~2009) Chronic cough (~2009) Depression (~1957) Genital warts (~1969) Headache Hearing loss (~2017) Hemorrhoid (~1979) History of irregular menstrual cycles (~1989) Hormone replacement therapy Hyperlipidemia (~2002) Measles (~194) Mumps (~1948) Osteopenia Osteoporosis (~2010) Plantar warts (~1965) Shoulder pain Surgical History Anesthesia History of bunionectomy (~1989) History of cataract removal with insertion of prosthetic lens Intestinal adhesions (~02/2012) S/P cervical spinal fusion (~2009) S/P lumbar fusion (~01/2012) Family History Father Cirrhosis of liver Social History Smoking Status: Never smoker Smoking Status: Never smoker alcohol intake frequency: a few times a month Substance Use Type: does not use Exam <LISA Landaverde - Last Filed: 07/30/22 14:10> Narrative Exam Narrative: Exam Narrative: GENERAL: This is a well-nourished, well-developed patient, in no acute distress. HEAD: Atraumatic. Normocephalic. EYES: No scleral icterus, injection or drainage. ENT: Nose without bleeding, purulent drainage. Airway patent. No sinus tenderness. NECK: Trachea midline. No JVD. CARDIOVASCULAR: Regular rate and rhythm without murmurs, peripheral pulses intact, cap refill <2 sec. RESPIRATORY: Breath sounds equal and clear bilaterally. No wheezes, rales, or rhonchi. No cough. No increased respiratory effort. No accessory muscle use. GASTROINTESTINAL: Abdomen soft, non-tender, nondistended without guarding or rebound. No suprapubic pain. MSK: Moves all extremities. Normal range of motion, no clubbing or edema. Neurovascularly intact. Right upper back pain behind right scapula. Equal line assigner strength. NEURO: A&O x 3. SKIN: Warm, dry, no rashes or lesions noted. Initial Vital Signs Initial Vital Signs: Vital Signs Temperature 97.9 F 07/30/22 09:57 Pulse Rate 88 07/30/22 09:57 Respiratory Rate 15 07/30/22 09:57 Blood Pressure 171/89 H 07/30/22 09:57 Pulse Oximetry 96 07/30/22 09:57 Oxygen Delivery Method Room Air 07/30/22 09:57 Reviewed <Priscila Thornton DO - Last Filed: 07/31/22 08:23> Initial Vital Signs Initial Vital Signs: Vital Signs Temperature 97.9 F 07/30/22 09:57 Pulse Rate 88 07/30/22 09:57 Respiratory Rate 15 07/30/22 09:57 Blood Pressure 171/89 H 07/30/22 09:57 Pulse Oximetry 96 07/30/22 09:57 Oxygen Delivery Method Room Air 07/30/22 09:57 Course <LISA Landaverde - Last Filed: 07/30/22 14:10> Orders Ordered: Discontinued Medications Hydromorphone HCl (Hydromorphone 1 Mg Inj) 1 mg IM NOW ONE Stop: 07/30/22 13:19 Last Admin: 07/30/22 13:43 Dose: 1 mg Documented By: NR Vital Signs Vital signs: Vital Signs - 8 hr 07/30/22 09:57 Temperature 97.9 F Pulse Rate 88 Respiratory Rate 15 Blood Pressure 171/89 H Pulse Oximetry 96 Oxygen Delivery Method Room Air <Priscila Thornton DO - Last Filed: 07/31/22 08:23> Orders Ordered: Discontinued Medications Hydromorphone HCl (Hydromorphone 1 Mg Inj) 1 mg IM NOW ONE Stop: 07/30/22 13:19 Last Admin: 07/30/22 13:43 Dose: 1 mg Documented By: NR Vital Signs Vital signs: Vital Signs - 8 hr 07/30/22 09:57 Temperature 97.9 F Pulse Rate 88 Respiratory Rate 15 Blood Pressure 171/89 H Pulse Oximetry 96 Oxygen Delivery Method Room Air MDM - Extremity (Nontraumatic) <LISA Landaverde - Last Filed: 07/30/22 14:10> Differential Diagnosis Differential diagnosis: Likely other (Upper back strain) MDM Narrative Medical decision making narrative: 76-year-old female with right upper back strain that has presented to the emergency depart department 3 times in the last 48 hours. Assessment was encouraging but consistent with a right upper back strain. Discussed case with Dr. Thornton and decision was made to provide a IM injection of Dilaudid. After thorough investigation chart, did discover that patient had not filled her prescription at [facility] pharmacy for her hydrocodone, Toradol, Flexeril lidocaine patches. 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 (new medications were prescribed before discovery of unfilled existing prescriptions. Contacted [facility] pharmacy pharmacist to cancel.) Discharge Plan Departure Patient Disposition: Home Clinical Impression: Upper back strain Instructions: DI for Back Strain or Sprain Activity Restrictions/Additional Instructions: *You have been diagnosed with a upper back strain. *What to do: *Please continue to take your regular medications as directed. [ ] New medication prescriptions sent to your pharmacy: Patient has unfilled prescription at [facility] in [place] [ ] New medication written as a paper prescription [ ] No new medications given *Please follow up with your primary care provider in 2-3 days, call for an appointment. Let them know you were seen in the Emergency Department and that we ask that you be seen in follow up. We will electronically transmit a record of today's note if your PCP is in our system *If you do not have a primary care provider please contact the [facility] Resource line at [phone]. They will ask some questions about your medical history and help get you set up with a doctor in the community. ? Return to ER if you should have any new, worsening or concerning symptoms, such as worsening pain, severe headache, confusion, chest pain, difficulty breathing, fever greater than 101 F, shaking chills, persistent vomiting to the point that you cannot drink fluids, or other new or worsening symptoms. Prescriptions: New oxycodone-acetaminophen [Percocet] 5-325 mg tablet 1 tab PO Q6H PRN (Reason: pain) Qty: 10 0RF lidocaine [Lidoderm] 5 % adhesive patch,medicated 1 patch topical DAILY PRN (Reason: muscle pain) Qty: 15 0RF Rx Instructions: leave on most painful area for up to 12 hrs methocarbamol 500 mg tablet 500 mg PO TID Qty: 9 0RF No Action PRIMIDONE (Mysoline) Qty: 0 estradiol 0.5 MG tablet Qty: 0 CA PANTOTHENATE/FOLIC ACID/VIT (MULTIVITAMIN) 1 tab PO QDAY Qty: 0 rosuvastatin [Crestor] 10 MG tablet 10 mg PO QDAY Qty: 0 diazepam [Valium] 5 mg tablet 5 mg PO HSP PRNQty: 0 estradiol 0.5 mg tablet 0.5 mg PO DAILY Qty: 90 0RF Rx Instructions: Take one tablet by mouth once a day. cholecalciferol (vitamin D3) 50 mcg (2,000 unit) capsule 50 mcg PO DAILY cyclobenzaprine 10 mg tablet 10 mg PO TID PRN (Reason: muscle spasm) Qty: 14 0RF hydrocodone-acetaminophen 5-325 mg tablet 1 tab PO Q4-6H PRN (Reason: pain) Qty: 10 0RF ketorolac 10 mg tablet 10 mg PO Q6H PRN (Reason: pain) Qty: 14 0RF lidocaine [Lidoderm] 5 % adhesive patch,medicated 1 patch TOP DAILY Qty: 15 0RF Rx Instructions: leave on most painful area for 12 hrs Referrals: Agnes Scott, RANJEET [Primary Care Provider] - Stand Alone Forms: Patient Portal/API <Priscila Thornton DO - Last Filed: 07/31/22 08:23> Cosign ED Attending Cosignature Attestation: I was immediately available in the department for consultation. Documentation has been reviewed.
[2022-07-30] MEDS: HYDROMORPHONE 1 MG INJ IM (13:43)
== END 2022-07-30 14:02 | disposition home or self-care (01) ==
PROVIDERS: Emergency Provider Registered Nurse; PCP Student in an Organized Health Care Education/Training Program
DX: S29.012A Strain of muscle and tendon of back wall of thorax, initial encounter (principal)
CPT/HCPCS: 96372; 99283; J1170

== ENCOUNTER → 2022-09-14 10:55 | Outpatient (CLI) | payer MEDICARE, OTHER, SELFPAY ==
--- NOTE | 2022-09-14 | DI.RAD.S_ITS ---
PROCEDURE: XR THORACIC SPINE 3V INDICATIONS: acute right-sided thoracic back pain TECHNIQUE: 3 views of the thoracic spine were acquired. COMPARISON: [facility], CT, CHEST ANGIO-PE, 03/07/2012, 13:09. [facility], MR, MR HEAD/BRAIN WO CON, 09/14/2022, 11:14. [facility], MR, MR ANGIO HEAD WO CON, 09/14/2022, 11:14. [facility], CR, XR THORACIC SPINE 3V, 10/07/2021, 15:01. FINDINGS: Bones: No fractures or dislocations. No suspicious bony lesions. 12 pairs of ribs are noted, and appear intact where visualized. Accentuated thoracic kyphosis is seen. Age-appropriate bony degenerative changes are seen. Minimal dextroconvex scoliotic curvature is seen. Cervical spine fixation hardware is partially seen. Lumbar spine fixation hardware is also partially seen. Soft tissues: No paravertebral stripe thickening. Calcified mediastinal lymph nodes are partially seen. IMPRESSION: Postoperative and degenerative changes are seen. If it would be helpful for clinical management decision making, please consider a dedicated, scheduled shoulder MRI for further evaluation (assuming that there is no contraindication). Prior granulomatous exposure incidentally noted. Dictated by: Cruz Colvin M.D. on 09/14/2022 at 12:35 Approved by: Cruz Colvin M.D. on 09/14/2022 at 12:37
--- NOTE | 2022-09-14 10:59 | DI.MRI.S_ITS ---
PROCEDURE: MR ANGIO HEAD WO CON INDICATIONS: VISION CHANGES TECHNIQUE: Noncontrast axial 3-D [id number] MR angiogram, with 3-dimensional maximum intensity projection (MIP) reformats of the internal carotid arteries and posterior circulation then performed. COMPARISON: None. FINDINGS: Image quality: Excellent. Anterior circulation: Intracranial internal carotid arteries demonstrate normal size and intraluminal flow signal. The flow within the paired anterior cerebral arteries is normal and symmetric. The flow within the middle cerebral arteries is normal and symmetric. The anterior communicating artery is seen. No stenoses, occlusions, or aneurysms. Posterior circulation: Note is made of bilateral type origins of the posterior cerebral arteries, with an associated diminutive basilar artery. The flow within the posterior cerebral arteries is normal and symmetric. The left V4 segment is within normal limits. The right V4 segment largely terminates in the right posterior inferior cerebellar artery. No aneurysms are seen. IMPRESSION: No significant intracranial arterial abnormality is seen. 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 Dictated by: Cruz Colvin M.D. on 09/14/2022 at 11:34 Approved by: Cruz Colvin M.D. on 09/14/2022 at 11:35
--- NOTE | 2022-09-14 10:59 | DI.MRI.S_ITS ---
PROCEDURE: MR HEAD/BRAIN WO CON INDICATIONS: VISION CHANGES TECHNIQUE: Non-contrast axial T1 spin echo, axial T2 fast spin echo, sagittal and axial FLAIR, coronal T2 fast spin echo, axial gradient echo, axial diffusion and ADC through the brain. COMPARISON: None. FINDINGS: Image quality: Excellent. CSF spaces: Ventricles appear symmetric in size and shape. Basal cisterns are patent. No extra-axial fluid collections. Brain: No intracranial bleeds or mass effects. There is cerebral volume loss for age. There are periventricular and deep white matter chronic small vessel ischemic changes. Brainstem appears normal. Diffusion-weighted images show no acute ischemic insults. No chronic ischemic insults. Normal intravascular flow voids are present. Skull and face: Calvarial bone marrow is normal in signal. Orbits are normal. Note is made of bilateral lens replacements. Sinuses: Sinuses and mastoids are clear. IMPRESSION: Unremarkable intracranial study for age, without a cause of the patient's presenting history of vision problems identified. Dictated by: Cruz Colvin M.D. on 09/14/2022 at 11:32 Approved by: Cruz Colvin M.D. on 09/14/2022 at 11:34
== END ==
PROVIDERS: PCP Student in an Organized Health Care Education/Training Program; Referring Provider Student in an Organized Health Care Education/Training Program; Visit Provider Student in an Organized Health Care Education/Training Program
DX: H53.9 Unspecified visual disturbance; M47.814 Spondylosis without myelopathy or radiculopathy, thoracic region; M54.6 Pain in thoracic spine
CPT/HCPCS: 70544; 70551; 72072

== ENCOUNTER → 2023-01-04 10:08 | Outpatient (CLI) | payer MEDICARE, OTHER, SELFPAY ==
--- NOTE | 2023-01-04 | DI.RAD.S_ITS ---
Bone Density Report Name: LIBERTY FUNEZ Age: 77 Sex: Female Ethnicity: White Date of : 1945 Indication: postmenopausal; screening for osteoporosis; Referring Provider: DARLENE DEY Study: Bone densitometry was performed. Exam Date: January 04, 2023 Accession number: [id number] Bone Density: Region BMD T-score Z-score Classification Femoral Neck (Left) 0.742 -1.0 1.2 Normal Total Hip (Left) 0.883 -0.5 1.4 Normal Femoral Neck (Right) 0.772 -0.7 1.5 Normal Total Hip (Right) 0.898 -0.4 1.5 Normal Total Hip Mean 0.890 -0.5 1.5 Normal Total Forearm (Left) 0.501 -1.5 1.2 Osteopenia 1/3 Forearm (Left) 0.614 -1.3 1.5 Osteopenia UD Forearm (Left) 0.352 -1.6 0.4 Osteopenia World Health Organization criteria for BMD impression classify patients as: Normal (T-score at or above -1.0), Osteopenia (T-score between -1.0 and -2.5), or Osteoporosis (T-score at or below -2.5). 10-year Fracture Risk: FRAX not reported because: All T-scores for Spine Total, Hip Total, Femoral Neck at or above -1.0 Impression: The patient has normal bone mass. Discussion: BONE DENSITY IS ABOVE THE MINIMUM DESIRABLE LEVEL AT ALL SKELETAL SITES TESTED. This patient's bone mineral density is above the minimum desirable level (T-score -1.0 or better) at all sites measured. The patient should follow a healthful lifestyle (good nutrition with adequate calcium and vitamin D, and appropriate weight-bearing exercise). Follow-Up: Consider repeating this study in 5 years or sooner if there is some new clinical indication. Reported by: MARSHAL MONTERO M.D. on 01/04/2023 11:00:00 AM.
--- NOTE | 2023-01-04 | DI.US.S_ITS ---
PROCEDURE: US ABDOMEN LIMITED INDICATIONS: ELEVATED LFT'S TECHNIQUE: Real-time focused scanning was performed of the abdomen, with image documentation. COMPARISON: None. FINDINGS: Liver measures 15 centimeters. Overall appearance is within normal limits by ultrasound. Unremarkable appearance of the gallbladder. CBD measures 5 millimeters. Pancreas is unremarkable. IMPRESSION: No acute sonographic abnormality in the right upper quadrant. Dictated by: Sarkis Lovell M.D. on 01/04/2023 at 13:38 Approved by: Sarkis Lovell M.D. on 01/04/2023 at 13:38
== END ==
PROVIDERS: PCP Student in an Organized Health Care Education/Training Program; Referring Provider Student in an Organized Health Care Education/Training Program; Visit Provider Student in an Organized Health Care Education/Training Program
DX: R74.8 Abnormal levels of other serum enzymes; Z13.820 Encounter for screening for osteoporosis; Z78.0 Asymptomatic menopausal state; Z92.23 Personal history of estrogen therapy
CPT/HCPCS: 76705; 77080; 77081

== ENCOUNTER → 2023-10-13 16:15 | Outpatient (CLI) | payer MEDICARE, OTHER, SELFPAY ==
--- NOTE | 2023-10-13 16:18 | DI.RAD.S_ITS ---
PROCEDURE: XR LUMBAR SPINE 2-3V INDICATIONS: LOW BACK PAIN TECHNIQUE: 3 views of the lumbar spine were acquired. COMPARISON: [facility], , L-SPINE 2-3 VIEWS, 06/16/2015, 13:10. FINDINGS: Bones: 5 [id number] vertebrae are present. There is stable bony alignment with anterolisthesis of L5 on S1. Stable postsurgical changes of posterior spinal fusion of L3 through L5 with paraspinal rods and bilateral pedicular screw fixation. Interbody spacers noted at L3-4 and L4-5. No evidence of hardware complication. Interval progression of moderate thoracolumbar junction and lumbar spondylitic changes. No acute vertebral body compression fractures. No suspicious bony lesions. Soft tissues: Overlying bowel gas pattern is normal. No suspicious soft tissue calcifications. IMPRESSION: Lumbar spine without acute osseous abnormalities. Stable postsurgical changes of spinal fusion from L3 through L5 without evidence for hardware complication. Interval progression of multilevel lumbar spondylosis. Dictated by: Eh Mcgowan M.D. on 10/14/2023 at 10:28 Approved by: Eh Mcgowan M.D. on 10/14/2023 at 10:31
== END ==
PROVIDERS: PCP Student in an Organized Health Care Education/Training Program; Referring Provider Student in an Organized Health Care Education/Training Program; Visit Provider Student in an Organized Health Care Education/Training Program
DX: M51.16 Intervertebral disc disorders with radiculopathy, lumbar region (principal); M47.26 Other spondylosis with radiculopathy, lumbar region; Z98.1 Arthrodesis status
CPT/HCPCS: 72100

== ENCOUNTER 2024-08-06 04:57 | Emergency (ER) | payer MEDICARE, OTHER, SELFPAY ==
[2024-08-06] VITALS (27 sets, daily range): BP systolic 106–151; BP diastolic 55–82; PULSE 72–109; RESP 13–33; TEMP 36.4; O2SAT 89–99; BMI 28.3
--- NOTE | 2024-08-06 | DI.RAD.S_ITS ---
PROCEDURE: XR GASTROGRAFIN CHALLENGE COMPARISON: [facility], CT, CT ABDOMEN PELVIS W CON, 08/06/2024, 6:25. INDICATIONS: ileus vs sbo FINDINGS: Gastrografin contrast is seen in the stomach lumen, small bowel loops extending to distal sigmoid colon and rectum. No contrast extravasation. No gross pneumoperitoneum. IMPRESSION: Gastrografin contrast is seen reaching distal sigmoid colon and rectum without area of focal high-grade obstruction. No gross peritoneal free air. Dictated by: Reid Salgado M.D. on 08/06/2024 at 14:10 Approved by: Reid Salgado M.D. on 08/06/2024 at 14:18
--- NOTE | 2024-08-06 05:02 | ED.GENADULT ---
HPI - General Adult <Harrison Rogers MD - Last Filed: 08/06/24 11:36> General Chief complaint: Abdominal Pain Stated complaint: abd pain Time Seen by Provider: 08/06/24 04:58 History of Present Illness HPI narrative: 78-year-old female with history of lumbar surgery, prior abdominal adhesions with anterior approach adhesional lysis laparotomy, can not recall any other abdominopelvic surgeries, recent hard stools, this morning had intense cramping of mid lower abdomen, somewhat decreased but still present on arrival by EMS. No nausea, no vomiting, last bowel movement yesterday morning. No black or red stools. No painful urination or frequency of urination. She does not recall history of kidney stones. No injury trauma new activities. Related Data Home Medications Medication Instructions Recorded Confirmed PRIMIDONE (Mysoline) ##0 09/14/09 04/15/23 CA PANTOTHENATE/FOLIC ACID/VIT 1 tab PO QDAY ##0 02/26/12 04/15/23 (MULTIVITAMIN) cholecalciferol (vitamin D3) 50 50 mcg PO DAILY 03/12/20 04/15/23 mcg (2,000 unit) capsule diazepam 5 mg tablet (Valium) 5 mg PO HSP PRN ##0 03/12/20 04/15/23 estradiol 1 mg tablet 1 mg PO DAILY 04/15/23 04/15/23 rosuvastatin 20 mg tablet mg PO 04/15/23 04/15/23 venlafaxine 150 mg 300 mg PO DAILY 04/15/23 04/15/23 capsule,extended release 24 hr Previous Rx's Medication Instructions Recorded cyclobenzaprine 10 mg tablet 10 mg PO TID PRN muscle spasm #14 07/29/22 tabs Allergies Allergy/AdvReac Type Severity Reaction Status Date / Time aspirin [ASPIRIN] Allergy Unknown Verified 04/15/23 11:01 Patient History <Harrison Rogers MD - Last Filed: 08/06/24 11:36> Medical History Hearing loss (~2017) Plantar warts (~1965) Chronic cough (~2009) Headache Benign familial tremor Shoulder pain Osteoporosis (~2010) Osteopenia Chronic back pain (~2009) Carpal tunnel syndrome (~1983) Mumps (~1949) Measles (~1948) Chicken pox (~1948) History of irregular menstrual cycles (~1989) Genital warts (~1969) Chlamydia (~1982) Abnormal Pap smear of cervix (~10/21/00) Hemorrhoid (~1979) Hyperlipidemia (~2002) Depression (~1957) Hormone replacement therapy Surgical History Anesthesia Intestinal adhesions (~02/2012) S/P lumbar fusion (~01/2012) S/P cervical spinal fusion (~2009) History of bunionectomy (~1989) History of cataract removal with insertion of prosthetic lens Family History Father Cirrhosis of liver Social History Smoking Status: Never smoker Smoking Status: Never smoker alcohol intake frequency: a few times a month Exam <Harrison Rogers MD - Last Filed: 08/06/24 11:36> Narrative Exam Narrative: GENERAL: Well-developed patient, in mild distress. HEAD: Atraumatic. Normocephalic. EYES: Pupils equal round and reactive. Extraocular motions intact. No scleral icterus. No injection or drainage. ENT: Nose without bleeding, purulent drainage. Throat without erythema, tonsillar hypertrophy or exudate. Airway patent. NECK: Trachea midline. Non tender CARDIOVASCULAR: Regular rate and rhythm without murmurs, gallops, or rubs. RESPIRATORY: Clear to auscultation. Breath sounds equal bilaterally. No wheezes, rales, or rhonchi. GASTROINTESTINAL: Well-healed vertical low midline scar, no obvious incisional hernia, some mid periumbilical and slightly inferior tenderness, no guarding or rebound, bowel tones present without tinkles or rushes. EXTREMITIES: No edema or joint tenderness. BACK: Nontender without deformity or crepitance. No flank tenderness. NEURO: AOx3. Motor functions grossly nonfocal SKIN: No rash or erythema of visible areas Initial Vital Signs Initial Vital Signs: Vital Signs Pulse Rate 77 08/06/24 05:00 Pulse Oximetry 98 08/06/24 05:00 <Priscila Thornton DO - Last Filed: 08/06/24 14:26> Initial Vital Signs Initial Vital Signs: Vital Signs Pulse Rate 77 08/06/24 05:00 Pulse Oximetry 98 08/06/24 05:00 Course <Harrison Rogers MD - Last Filed: 08/06/24 11:36> Orders Ordered: ED Orders 08/06/24 05:42 CT abdomen pelvis w con Stat 08/06/24 05:45 Complete Blood Count AUTO DIFF Stat Comprehensive Metabolic Panel Stat Lipase Stat 08/06/24 08:55 Urine Culture Stat Urine Microscopic Stat Discontinued Medications Ondansetron HCl (Ondansetron 4 Mg/2 Ml Inj) 4 mg IV NOW ONE Stop: 08/06/24 09:21 Last Admin: 08/06/24 09:30 Dose: 4 mg Documented By: WALDO Vital Signs Vital signs: Vital Signs - 8 hr 08/06/24 06:30 08/06/24 07:00 08/06/24 07:30 Pulse Rate 73 84 85 Respiratory Rate 23 21 Blood Pressure Pulse Oximetry 89 L 94 93 Oxygen Delivery Method 08/06/24 07:58 08/06/24 07:58 08/06/24 08:00 Pulse Rate 90 87 Respiratory Rate 13 20 Blood Pressure 111/57 L Pulse Oximetry 96 93 Oxygen Delivery Method 08/06/24 08:00 08/06/24 08:30 08/06/24 08:30 Pulse Rate 84 Respiratory Rate 14 Blood Pressure 106/57 L 115/55 L Pulse Oximetry 93 Oxygen Delivery Method Room Air 08/06/24 08:59 08/06/24 08:59 08/06/24 09:00 Pulse Rate 90 88 Respiratory Rate 20 19 Blood Pressure 151/71 H Pulse Oximetry 97 96 Oxygen Delivery Method Room Air 08/06/24 09:00 08/06/24 09:30 08/06/24 09:30 Pulse Rate 85 Respiratory Rate 22 Blood Pressure 139/64 135/71 Pulse Oximetry 94 Oxygen Delivery Method 08/06/24 10:00 08/06/24 10:00 08/06/24 10:30 Pulse Rate 87 Respiratory Rate 20 Blood Pressure 149/80 H 134/75 Pulse Oximetry 94 Oxygen Delivery Method 08/06/24 10:30 Pulse Rate 90 Respiratory Rate 15 Blood Pressure Pulse Oximetry 93 Oxygen Delivery Method Room Air <Priscila Thornton DO - Last Filed: 08/06/24 14:26> Orders Ordered: ED Orders 08/06/24 05:42 CT abdomen pelvis w con Stat 08/06/24 05:45 Complete Blood Count AUTO DIFF Stat Comprehensive Metabolic Panel Stat Lipase Stat 08/06/24 08:55 Urine Culture Stat Urine Microscopic Stat Discontinued Medications Ondansetron HCl (Ondansetron 4 Mg/2 Ml Inj) 4 mg IV NOW ONE Stop: 08/06/24 09:21 Last Admin: 08/06/24 09:30 Dose: 4 mg Documented By: WALDO Vital Signs Vital signs: Vital Signs - 8 hr 08/06/24 06:30 08/06/24 07:00 08/06/24 07:30 Pulse Rate 73 84 85 Respiratory Rate 23 21 Blood Pressure Pulse Oximetry 89 L 94 93 Oxygen Delivery Method 08/06/24 07:58 08/06/24 07:58 08/06/24 08:00 Pulse Rate 90 87 Respiratory Rate 13 20 Blood Pressure 111/57 L Pulse Oximetry 96 93 Oxygen Delivery Method 08/06/24 08:00 08/06/24 08:30 08/06/24 08:30 Pulse Rate 84 Respiratory Rate 14 Blood Pressure 106/57 L 115/55 L Pulse Oximetry 93 Oxygen Delivery Method Room Air 08/06/24 08:59 08/06/24 08:59 08/06/24 09:00 Pulse Rate 90 88 Respiratory Rate 20 19 Blood Pressure 151/71 H Pulse Oximetry 97 96 Oxygen Delivery Method Room Air 08/06/24 09:00 08/06/24 09:30 08/06/24 09:30 Pulse Rate 85 Respiratory Rate 22 Blood Pressure 139/64 135/71 Pulse Oximetry 94 Oxygen Delivery Method 08/06/24 10:00 08/06/24 10:00 08/06/24 10:30 Pulse Rate 87 Respiratory Rate 20 Blood Pressure 149/80 H 134/75 Pulse Oximetry 94 Oxygen Delivery Method 08/06/24 10:30 Pulse Rate 90 Respiratory Rate 15 Blood Pressure Pulse Oximetry 93 Oxygen Delivery Method Room Air Medical Decision Making <Harrison Rogers MD - Last Filed: 08/06/24 11:36> Lab Data 08/06/24 05:45 08/06/24 05:45 Labs: Lab Results 08/06/24 08/06/24 Range/Units 05:45 08:55 WBC 14.6 H (4.5-11.0) X10^3/uL RBC 4.39 (4.0-5.2) X10^6/uL Hgb 13.3 (12.0-16.0) g/dL Hct 39.8 (36-46) % MCV 90.7 (80-100) fL MCH 30.3 (26-34) PG MCHC 33.4 (30-36) % RDW 14.2 (11.6-14.8) % Plt Count 270 (150-400) X10^3/uL Neut % (Auto) 83.8 H (50-75) % Lymph % (Auto) 9.6 L (25-40) % [place] % (Auto) 5.7 (3-14) % Eos % (Auto) 0.5 L (2-4) % Baso % (Auto) 0.4 (0-2) % Neut # (Auto) 74771 H (9819-2655) /uL Lymph # (Auto) 1400 (5816-2038) /uL [place] # (Auto) 800 (0-900) /uL Eos # (Auto) 100 (0-450) /uL Baso # (Auto) 100 (0-100) /uL Sodium 136 L (137-145) mmol/L Potassium 4.2 (3.4-5.1) mmol/L Chloride 101 (98-107) mmol/L Carbon Dioxide 27 (22-32) mmol/L BUN 15 (7-17) mg/dL Creatinine 0.81 (0.52-1.04) mg/dL Estimated GFR > 60 (>60) mL/min BUN/Creatinine Ratio 18.5 (6-22) Glucose 115 H (80-110) mg/dL Calcium 9.2 (8.4-10.2) mg/dL Total Bilirubin 0.4 (0.2-1.3) mg/dL AST 39 H (14-36) IU/L ALT 37 H (<35) IU/L Alkaline Phosphatase 97 (38-126) U/L Total Protein 7.3 (6.3-8.2) g/dL Albumin 4.2 (3.5-5.0) g/dL Globulin 3.1 (1.7-4.1) g/dL Albumin/Globulin Ratio 1.4 (1.0-2.8) Lipase 191 (23-300) U/L Urine RBC 1-5/hpf (0-5/HPF) Urine WBC 5-10/hpf H (0-5/HPF) Ur Squamous Epith Cells None seen (0-5/HPF) Urine Bacteria None seen (None) Ur Culture Indicated? Specimen cultured Vol Urine Centrifuged 10ml (spun) Urine Dip Bedside Urine Glucose Negative Bedside Urine Bilirubin - Negative Bedside Urine Ketone - Negative Urine Specific [place] 1.005 Bedside Urine Occult Blood + Bedside Urine pH 8.0 Bedside Urine Protein - Negative Bedside Urine Urobilinogen - Negative Bedside Urine Nitrite - Negative Bedside Urine Leukocytes +++ 500 Esterase Point of care testing: Urine Dip Bedside Urine Glucose Negative Bedside Urine Bilirubin - Negative Bedside Urine Ketone - Negative Urine Specific [place] 1.005 Bedside Urine Occult Blood + Bedside Urine pH 8.0 Bedside Urine Protein - Negative Bedside Urine Urobilinogen - Negative Bedside Urine Nitrite - Negative Bedside Urine Leukocytes +++ 500 Esterase ECG Data Attestation: I personally reviewed and interpreted this ECG as follows: Interpretation: Normal sinus rhythm with rate of 72, no obvious ST segment elevation or depression changes. Low voltage in lead 3 noted. MD 182, QRS 76, QTC 424. MDM Narrative Medical decision making narrative: 78-year-old female with history of prior remote bowel obstruction treated via laparotomy, with central low midline abdominal pain for the last couple of hours, still present but slightly less, recent hard stools, no black or red stools. Afebrile, sirs screen negative. Labs pending. Consider CT abdomen pelvis imaging, preferably with IV contrast if GFR favorable. She declines pain medications for now when offered. Keep NPO. Screening EKG normal sinus rhythm, no obvious ischemic changes. White blood cell count 19095, GFR favorable. CT abdomen and pelvis with IV contrast ordered. 0700, [facility] report pending, [facility]. Thornton. Dr. Thornton-patient signed out to me by Dr. Rogers I have seen evaluated patient myself. She reports that pain has improved. Abdomen is soft mildly distended no nausea or vomiting not requiring anything for pain this time. Dr. Berry surgery consulted in regards to CT and patient complaints. He was ordered a Gastrografin study <Priscila Thornton, DO - Last Filed: 08/06/24 14:26> Lab Data Labs: Lab Results 08/06/24 08/06/24 Range/Units 05:45 08:55 WBC 14.6 H (4.5-11.0) X10^3/uL RBC 4.39 (4.0-5.2) X10^6/uL Hgb 13.3 (12.0-16.0) g/dL Hct 39.8 (36-46) % MCV 90.7 (80-100) fL MCH 30.3 (26-34) PG MCHC 33.4 (30-36) % RDW 14.2 (11.6-14.8) % Plt Count 270 (150-400) X10^3/uL Neut % (Auto) 83.8 H (50-75) % Lymph % (Auto) 9.6 L (25-40) % [place] % (Auto) 5.7 (3-14) % Eos % (Auto) 0.5 L (2-4) % Baso % (Auto) 0.4 (0-2) % Neut # (Auto) 50747 H (4536-5630) /uL Lymph # (Auto) 1400 (1207-3091) /uL [place] # (Auto) 800 (0-900) /uL Eos # (Auto) 100 (0-450) /uL Baso # (Auto) 100 (0-100) /uL Sodium 136 L (137-145) mmol/L Potassium 4.2 (3.4-5.1) mmol/L Chloride 101 (98-107) mmol/L Carbon Dioxide 27 (22-32) mmol/L BUN 15 (7-17) mg/dL Creatinine 0.81 (0.52-1.04) mg/dL Estimated GFR > 60 (>60) mL/min BUN/Creatinine Ratio 18.5 (6-22) Glucose 115 H (80-110) mg/dL Calcium 9.2 (8.4-10.2) mg/dL Total Bilirubin 0.4 (0.2-1.3) mg/dL AST 39 H (14-36) IU/L ALT 37 H (<35) IU/L Alkaline Phosphatase 97 (38-126) U/L Total Protein 7.3 (6.3-8.2) g/dL Albumin 4.2 (3.5-5.0) g/dL Globulin 3.1 (1.7-4.1) g/dL Albumin/Globulin Ratio 1.4 (1.0-2.8) Lipase 191 (23-300) U/L Urine RBC 1-5/hpf (0-5/HPF) Urine WBC 5-10/hpf H (0-5/HPF) Ur Squamous Epith Cells None seen (0-5/HPF) Urine Bacteria None seen (None) Ur Culture Indicated? Specimen cultured Vol Urine Centrifuged 10ml (spun) Urine Dip Bedside Urine Glucose Negative Bedside Urine Bilirubin - Negative Bedside Urine Ketone - Negative Urine Specific [place] 1.005 Bedside Urine Occult Blood + Bedside Urine pH 8.0 Bedside Urine Protein - Negative Bedside Urine Urobilinogen - Negative Bedside Urine Nitrite - Negative Bedside Urine Leukocytes +++ 500 Esterase Point of care testing: Urine Dip Bedside Urine Glucose Negative Bedside Urine Bilirubin - Negative Bedside Urine Ketone - Negative Urine Specific [place] 1.005 Bedside Urine Occult Blood + Bedside Urine pH 8.0 Bedside Urine Protein - Negative Bedside Urine Urobilinogen - Negative Bedside Urine Nitrite - Negative Bedside Urine Leukocytes +++ [address] scan - abdomen/pelvis: Radiologist's Impression: PROCEDURE: CT ABDOMEN PELVIS W CON INDICATIONS: abd pain, prior bowel obst TECHNIQUE: After the administration of intravenous contrast, axial sections acquired from the lung bases to the pubic symphysis. Coronal and sagittal reformats were performed. For radiation dose reduction, the following was used: automated exposure control, adjustment of mA and/or kV according to patient size. COMPARISON: [facility], CT, ABDOMEN/PELVIS WITH CONTRAST, 09/19/2016, 0:40. FINDINGS: Image quality: Diagnostic Lower chest: Basal atelectasis. Lingular granuloma. Moderate hiatal hernia. Similar question small outpouching versus apex thinning of the left ventricle. Liver: Unremarkable Gallbladder and biliary system: Unremarkable, nondilated Pancreas: No ductal dilation Spleen: Small granuloma. Nonenlarged. Adrenals: No discrete nodules Kidneys: No solid mass. No hydronephrosis. Vessels and lymph nodes: The main portal vein is patent. No abdominal aortic aneurysm. No pathologic lymphadenopathy by size criteria. Bowel and peritoneum: Prominent fluid-filled loops of central small bowel, with more focal fecalized material in the right lower quadrant. Moderately distended loops of colon, mostly filled with fluid contents in the proximal and mid aspect. No drainable ascites or abscess. No pathologic small bowel dilation. Body wall: Unremarkable Pelvis: Bladder is unremarkable. 2.3 cm suspected right adnexal cystic lesion without nodular enhancement. Bones: Degenerative osseous changes. IMPRESSION: Moderately distended loops of colon filled with fluid. Mildly prominent central small bowel also filled with fluid. These findings are suggestive of enterocolitis. However, there is a small area of fecalization in the right lower quadrant ileal loops, which may represent partial obstruction versus ileus. No pathologic small bowel dilation. No evidence of a complete bowel obstruction. Other findings above No significant changes from the preliminary report. Dictated by: Sarkis Lovell M.D. on 08/06/2024 at 8:13 Abdominal x-ray: Radiologist's Impression: PROCEDURE:XR GASTROGRAFIN CHALLENGE COMPARISON:[facility], CT, CT ABDOMEN PELVIS W CON, 08/06/2024, 6:25. INDICATIONS:ileus vs sbo FINDINGS:Gastrografin contrast is seen in the stomach lumen, small bowel loops extending to distal sigmoid colon and rectum. No contrast extravasation. No gross pneumoperitoneum. IMPRESSION: Gastrografin contrast is seen reaching distal sigmoid colon and rectum without area of focal high-grade obstruction. No gross peritoneal free air. Dictated by: Reid Salgado M.D. on 08/06/2024 at 14:10 Approved by: Reid Salgado M.D. on 08/06/2024 at 14:18 [facility] Narrative Medical decision making narrative: 78-year-old female with history of prior remote bowel obstruction treated via laparotomy, with central low midline abdominal pain for the last couple of hours, still present but slightly less, recent hard stools, no black or red stools. Afebrile, sirs screen negative. Labs pending. Consider CT abdomen pelvis imaging, preferably with IV contrast if GFR favorable. She declines pain medications for now when offered. Keep NPO. Screening EKG normal sinus rhythm, no obvious ischemic changes. White blood cell count 52169, GFR favorable. CT abdomen and pelvis with IV contrast ordered. 0700, CT report pending, signed out to oncoming ED shift physician Dr. Thornton. Dr. Thornton-patient signed out to me by Dr. Rogers I have seen evaluated patient myself. She reports that pain has improved. Abdomen is soft mildly distended no nausea or vomiting not requiring anything for pain this time. Dr. Berry surgery consulted in regards to CT and patient complaints. He was ordered a Gastrografin study Gastrografin study read as negative Dr. Berry notified Patient reports she had 6 explosive episodes of diarrhea overall feeling significantly better tolerating p.o. fluids Discharge Plan Departure Patient Disposition: Home Clinical Impression: Abdominal pain Instructions: DI for Abdominal Pain-Adult Activity Restrictions/Additional Instructions: *You have been diagnosed with abdominal pain *What to do: At this time no evidence of bowel obstruction *Continue to take medications as directed *Follow up with your primary care provider in 2-3 days or call [phone] *Return to ER if you should have increasing pain nausea vomiting [or] any new, worsening or concerning symptoms Prescriptions: No Action estradiol 1 mg tablet 1 mg PO DAILY rosuvastatin 20 mg tablet PO venlafaxine 150 mg capsule,extended release 24hr 300 mg PO DAILY PRIMIDONE (Mysoline) Qty: 0 CA PANTOTHENATE/FOLIC ACID/VIT (MULTIVITAMIN) 1 tab PO QDAY Qty: 0 diazepam [Valium] 5 mg tablet 5 mg PO HSP PRNQty: 0 cholecalciferol (vitamin D3) 50 mcg (2,000 unit) capsule 50 mcg PO DAILY cyclobenzaprine 10 mg tablet 10 mg PO TID PRN (Reason: muscle spasm) Qty: 14 0RF Referrals: Agnes Scott PA-C [Primary Care Provider] - Stand Alone Forms: Patient Portal/API/Survey
--- NOTE | 2024-08-06 05:05 | EKG_ITS ---
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
--- NOTE | 2024-08-06 05:42 | DI.CT.S_ITS ---
PROCEDURE: CT ABDOMEN PELVIS W CON INDICATIONS: abd pain, prior bowel obst TECHNIQUE: After the administration of intravenous contrast, axial sections acquired from the lung bases to the pubic symphysis. Coronal and sagittal reformats were performed. For radiation dose reduction, the following was used: automated exposure control, adjustment of mA and/or kV according to patient size. COMPARISON: [facility], CT, ABDOMEN/PELVIS WITH CONTRAST, 09/19/2016, 0:40. FINDINGS: Image quality: Diagnostic Lower chest: Basal atelectasis. Lingular granuloma. Moderate hiatal hernia. Similar question small outpouching versus apex thinning of the left ventricle. Liver: Unremarkable Gallbladder and biliary system: Unremarkable, nondilated Pancreas: No ductal dilation Spleen: Small granuloma. Nonenlarged. Adrenals: No discrete nodules Kidneys: No solid mass. No hydronephrosis. Vessels and lymph nodes: The main portal vein is patent. No abdominal aortic aneurysm. No pathologic lymphadenopathy by size criteria. Bowel and peritoneum: Prominent fluid-filled loops of central small bowel, with more focal fecalized material in the right lower quadrant. Moderately distended loops of colon, mostly filled with fluid contents in the proximal and mid aspect. No drainable ascites or abscess. No pathologic small bowel dilation. Body wall: Unremarkable Pelvis: Bladder is unremarkable. 2.3 cm suspected right adnexal cystic lesion without nodular enhancement. Bones: Degenerative osseous changes. IMPRESSION: Moderately distended loops of colon filled with fluid. Mildly prominent central small bowel also filled with fluid. These findings are suggestive of enterocolitis. However, there is a small area of fecalization in the right lower quadrant ileal loops, which may represent partial obstruction versus ileus. No pathologic small bowel dilation. No evidence of a complete bowel obstruction. Other findings above No significant changes from the preliminary report. Dictated by: Sarkis Lovell M.D. on 08/06/2024 at 8:13 Approved by: Sarkis Lovell M.D. on 08/06/2024 at 8:20
[2024-08-06 05:55] LABS: Add Manual Diff / Slide Review NO; Basophils Absolute Auto 100 /uL (0-100); Basophils Percent Auto 0.4 % (0-2); Eosinophils Absolute Auto 100 /uL (0-450); Eosinophils Percent Auto 0.5 % (2-4); Hematocrit 39.8 % (36-46); Hemoglobin 13.3 g/dL (12.0-16.0); Lymphocytes Absolute Auto 1400 /uL (1100-4500); Lymphocytes Percent Auto 9.6 % (25-40); Mean Corpuscular HGB Conc 33.4 % (30-36); Mean Corpuscular Hemoglobin 30.3 PG (26-34); Mean Corpuscular Volume 90.7 fL (80-100); Monocytes Absolute Auto 800 /uL (0-900); Monocytes Percent Auto 5.7 % (3-14); Neutrophils Absolute Auto 12200 /uL (1500-7000); Neutrophils Percent Auto 83.8 % (50-75); Platelet Count 270 X10^3/uL (150-400); Red Blood Cell Count 4.39 X10^6/uL (4.0-5.2); Red Cell Distribution Width 14.2 % (11.6-14.8); White Blood Cell Count 14.6 X10^3/uL (4.5-11.0)
[2024-08-06 06:06] LABS: Alanine Aminotransferase 37 IU/L (<35); Albumin 4.2 g/dL (3.5-5.0); Albumin Globulin Ratio 1.4 (1.0-2.8); Alkaline Phosphatase 97 U/L (38-126); Aspartate Aminotransferase 39 IU/L (14-36); BUN Creatinine Ratio 18.5 (6-22); Bilirubin Total 0.4 mg/dL (0.2-1.3); Blood Urea Nitrogen 15 mg/dL (7-17); Calcium 9.2 mg/dL (8.4-10.2); Carbon Dioxide 27 mmol/L (22-32); Chloride 101 mmol/L (98-107); Estimated Glomerular Filt Rate > 60 mL/min (>60); Globulin 3.1 g/dL (1.7-4.1); Glucose 115 mg/dL (80-110); HEMOLYSIS < 15 (0-50); Lipase 191 U/L (23-300); Potassium 4.2 mmol/L (3.4-5.1); Sodium 136 mmol/L (137-145); Total Protein 7.3 g/dL (6.3-8.2)
[2024-08-06] MEDS: ONDANSETRON 4 MG/2 ML INJ IV (09:30)
[2024-08-06 09:36] LABS: Urine Volume 10mL (spun)
[2024-08-06 09:37] LABS: Bacteria Urine None Seen; RBC Urine 1-5/HPF (0-5/HPF); Squamous Epithelial Cell Urine None Seen (0-5/HPF); WBC Urine 5-10/HPF (0-5/HPF)
[2024-08-06 09:38] LABS: Culture Indicated Urine Specimen Cultured
== END 2024-08-06 15:01 | disposition home or self-care (01) ==
PROVIDERS: Emergency Medicine; Emergency Provider Emergency Medicine; PCP Student in an Organized Health Care Education/Training Program
DX: R10.9 Unspecified abdominal pain (principal)
CPT/HCPCS: 36415; 74018; 74177; 80053; 81003; 81015; 83690; 85025; 87086; 93005; 96374; 99284; J2405; Q9967

== ENCOUNTER 2025-05-23 05:34 | Inpatient (IN) | payer MEDICARE, OTHER, SELFPAY ==
[2025-05-23] VITALS (13 sets, daily range): BP systolic 127–203; BP diastolic 61–98; PULSE 73–98; RESP 13–24; TEMP 36.5–36.8; O2SAT 86–99; BMI 28.9; BMI 28.0
--- NOTE | 2025-05-23 06:08 | DI.CT.S_ITS ---
PROCEDURE: CT ABDOMEN PELVIS W CON INDICATIONS: abdominal pain TECHNIQUE: After the administration of intravenous contrast, axial sections acquired from the lung bases to the pubic symphysis. Coronal and sagittal reformats were performed. For radiation dose reduction, the following was used: automated exposure control, adjustment of mA and/or kV according to patient size. COMPARISON: [facility], CT, CT ABDOMEN PELVIS W CON, 08/06/2024, 6:25. FINDINGS: Image quality: There is artifact associated with the metallic hardware. Lower Chest: There is a small to moderate hiatal hernia. Note is made of thickening of the distal esophageal wall. ABDOMEN: Liver: No solid mass. Gallbladder: No radiopaque gallstones or wall thickening. Biliary ducts: No biliary dilation. Pancreas: No ductal dilation. Spleen: Size is within normal limits. At least 1 calcified granuloma can be seen within the spleen. Adrenal Glands: No adrenal nodules. Kidneys and Ureters: No hydronephrosis. No solid mass. No complex renal cystic lesion which requires follow up. Stomach and Bowel: The stomach is distended with fluid. Abnormally dilated loops of small bowel are seen, measuring up to 4.3 cm. The distal small bowel loops are decompressed. There is a transition point present within the right lower quadrant. There is a kink seen within the small bowel, as on series 3, image 34, which may be related to an adhesion. The colon is relatively decompressed. Peritoneum: There is a small amount of free intraperitoneal fluid. No free air. Ventral Wall: No significant ventral hernia. Abdominal Nodes: No retroperitoneal or mesenteric adenopathy by size criteria. Vessels: Aorta and inferior vena cava are normal in size. PELVIS: Pelvic Organs: Unremarkable. Bladder: No bladder wall thickening, accounting for underdistention. Pelvic Nodes: No enlarged lymph nodes. Miscellaneous: No inguinal hernias are seen. Bones: No aggressive osseous abnormality. Lumbar postoperative and degenerative changes are seen. Mild levoconvex scoliotic curvature is noted. IMPRESSION: Small-bowel obstruction, with a transition point seen within the right lower quadrant. Additional findings: Small hiatal hernia Thickening of the distal esophageal wall, please consider esophagitis. Note: No significant discrepancy from the preliminary report. Dictated by: Cruz Colvin M.D. on 05/23/2025 at 6:44 Approved by: Cruz Colvin M.D. on 05/23/2025 at 6:48
[2025-05-23] MEDS: ONDANSETRON 4 MG/2 ML INJ IV ×2 (06:15→18:43)
[2025-05-23 06:23] LABS: Add Manual Diff / Slide Review NO; Hematocrit 43.7 % (36-46); Hemoglobin 14.6 g/dL (12.0-16.0); Lymphocytes Absolute Auto 1100 /uL (1100-4500); Mean Corpuscular HGB Conc 33.4 % (30-36); Mean Corpuscular Hemoglobin 29.0 PG (26-34); Mean Corpuscular Volume 86.7 fL (80-100); Platelet Count 298 X10^3/uL (150-400)
[2025-05-23 06:29] LABS: Alanine Aminotransferase 44 IU/L (<35); Albumin 4.9 g/dL (3.5-5.0); Albumin Globulin Ratio 1.3 (1.0-2.8); Alkaline Phosphatase 147 U/L (38-126); Blood Urea Nitrogen 15 mg/dL (7-17); Calcium 9.8 mg/dL (8.4-10.2); Carbon Dioxide 27 mmol/L (22-32); Chloride 99 mmol/L (98-107); Estimated Glomerular Filt Rate > 60 mL/min (>60); Globulin 3.9 g/dL (1.7-4.1); Glucose 165 mg/dL (70-99); HEMOLYSIS 20 (0-50); Lactate (Lactic Acid) 2.8 mmol/L (0.7-2.1); Lipase 181 U/L (23-300); Potassium 3.6 mmol/L (3.4-5.1); Sodium 137 mmol/L (137-145); Total Protein 8.8 g/dL (6.3-8.2)
--- NOTE | 2025-05-23 06:52 | ED.ABDPAIN ---
HPI - Abdominal Pain <Elsie Wyman MD - Last Filed: 05/25/25 11:15> General Chief Complaint: Abdominal Pain Stated Complaint: Abdominal Pain, Vomiting Time Seen by Provider: 05/23/25 05:47 Source: patient Mode of arrival: Ambulatory History of Present Illness HPI narrative: Patient is a 79-year-old female who presents to the ED with daughter for abdominal pain, constipation, nausea, vomiting x 1 day. Past medical history significant for hyperlipidemia, depression, back pain. Patient states that she started having abdominal pain around midnight and had 3 episodes of vomiting. Last bowel movement 2 days ago. Pain is 10/10. Reports that she has history of constipation this episode feels similar. She denies any fevers, chills, chest pain, dyspnea, diaphoresis. Related Data Home Medications ?Medication ?Instructions ?Recorded ?Confirmed diazepam 5 mg tablet (Valium) 5 mg PO HSP PRN anxiety ##0 03/12/20 05/23/25 estradiol 1 mg tablet 1 mg PO DAILY 04/15/23 05/23/25 venlafaxine 150 mg 300 mg PO DAILY 04/15/23 05/23/25 capsule,extended release 24 hr primidone 250 mg tablet 375 mg PO DAILY 11/14/24 05/23/25 rosuvastatin 20 mg tablet 10 mg PO DAILY 11/14/24 05/23/25 Previous Rx's ?Medication ?Instructions ?Recorded cyclobenzaprine 10 mg tablet 10 mg PO TID PRN muscle spasm #14 07/29/22 tabs Allergies Allergy/AdvReac Type Severity Reaction Status Date / Time aspirin (ASPIRIN) Allergy Unknown Verified 05/23/25 05:43 Review of Systems <Elsie Wyman MD - Last Filed: 05/25/25 11:15> Review of Systems Narrative: See HPI. Patient History <Elsie Wyman MD - Last Filed: 05/25/25 11:15> Medical History Hearing loss (~2017) Plantar warts (~1965) Chronic cough (~2009) Headache Benign familial tremor Shoulder pain Osteoporosis (~2010) Osteopenia Chronic back pain (~2009) Carpal tunnel syndrome (~1983) Mumps (~1948) Measles (~1948) Chicken pox (~1948) History of irregular menstrual cycles (~1989) Genital warts (~1969) Chlamydia (~1982) Abnormal Pap smear of cervix (~10/21/00) Hemorrhoid (~1979) Hyperlipidemia (~2002) Depression (~1957) Hormone replacement therapy Surgical History Anesthesia Intestinal adhesions (~02/2012) S/P lumbar fusion (~01/2012) S/P cervical spinal fusion (~2009) History of bunionectomy (~1989) History of cataract removal with insertion of prosthetic lens Family History Father Cirrhosis of liver Social History household members: spouse Smoking Status: Never smoker alcohol intake: never Smoking Status: Never smoker alcohol intake frequency: a few times a month Alcohol type: wine Exam <Elsie Wyman MD - Last Filed: 05/25/25 11:15> Narrative Exam Narrative: Vitals: Afebrile, hypertensive, other vitals normal. Gen: Well-developed, well-nourished, in acute distress secondary to pain. Card: Regular, no murmurs, rubs, gallops. Pulm: No increased work of breathing, clear to auscultation.. Abd: Distended, soft, tender to palpation throughout however not peritonitic. She has a midline surgical scar from prior ex lap. Ext: No peripheral edema in bilateral lower extremity. Neuro: A&O x3, cranial nerves grossly intact, moving all 4 extremities spontaneously.. Psych: Appropriate. Initial Vital Signs Initial Vital Signs: Vital Signs Temperature 97.7 F 05/23/25 05:42 Pulse Rate 73 05/23/25 05:42 Respiratory Rate 24 05/23/25 05:42 Blood Pressure 203/98 H 05/23/25 05:42 Pulse Oximetry 99 05/23/25 05:42 Oxygen Delivery Method Room Air 05/23/25 05:42 <Susu Beltran MD - Last Filed: 05/23/25 08:40> Initial Vital Signs Initial Vital Signs: Vital Signs Temperature 97.7 F 05/23/25 05:42 Pulse Rate 73 05/23/25 05:42 Respiratory Rate 24 05/23/25 05:42 Blood Pressure 203/98 H 05/23/25 05:42 Pulse Oximetry 99 05/23/25 05:42 Oxygen Delivery Method Room Air 05/23/25 05:42 Course <Elsie Wyman MD - Last Filed: 05/25/25 11:15> Orders Ordered: Acetaminophen (Acetaminophen 325 Mg Tablet) 650 mg PO Q4H PRN PRN Reason: Headache Last Admin: 05/25/25 07:39 Dose: 650 mg Documented By: Admin: 05/24/25 19:07 Dose: 650 mg Documented By: SINDHU Atorvastatin Calcium (Atorvastatin 20 Mg Tablet) 20 mg PO DAILY [facility] Last Admin: 05/25/25 08:55 Dose: Not Given Documented By: SINDHU Cyclobenzaprine HCl (Cyclobenzaprine 10 Mg Tablet) 10 mg PO TID PRN PRN Reason: Muscle Spasm Diazepam (Diazepam 5 Mg Tablet) 5 mg PO DAILY PRN PRN Reason: anxiety Enoxaparin Sodium (Enoxaparin 40 Mg/0.4 Ml Syringe) 40 mg SUBCUT DAILY [facility] Last Admin: 05/25/25 08:49 Dose: 40 mg Documented By: SINDHU Estradiol (Estradiol 0.5 Mg Tablet) 1 mg PO DAILY [facility] Last Admin: 05/25/25 09:51 Dose: Not Given Documented By: SINDHU Hydromorphone HCl (Hydromorphone 1 Mg/Ml Syringe) 1 mg IV Q2H PRN PRN Reason: Pain, Severe (7-10) Last Admin: 05/24/25 13:54 Dose: 1 mg Documented By: Admin: 05/24/25 08:36 Dose: 1 mg Documented By: Admin: 05/24/25 04:35 Dose: 1 mg Documented By: Admin: 05/24/25 02:25 Dose: 1 mg Documented By: Admin: 05/23/25 21:03 Dose: 1 mg Documented By: Admin: 05/23/25 18:36 Dose: 1 mg Documented By: Admin: 05/23/25 14:36 Dose: 1 mg Documented By: Admin: 05/23/25 10:13 Dose: 1 mg Documented By: FALGUNI Lactated Ringer's (Lactated Ringers) 1,000 mls @ 100 mls/hr IV CONT [facility] Last Admin: 05/25/25 02:32 Dose: 100 mls/hr Documented By: Infusion: 05/25/25 02:32 Dose: Infused Documented By: Admin: 05/24/25 16:35 Dose: 100 mls/hr Documented By: Infusion: 05/24/25 16:22 Dose: Infused Documented By: Admin: 05/24/25 06:22 Dose: 100 mls/hr Documented By: Infusion: 05/24/25 06:15 Dose: Infused Documented By: Admin: 05/23/25 20:15 Dose: 100 mls/hr Documented By: Infusion: 05/23/25 20:15 Dose: Infused Documented By: Admin: 05/23/25 10:32 Dose: 100 mls/hr Documented By: FALGUNI Naloxone HCl (Naloxone 0.4 Mg/Ml Vial) 0.2 mg IV Q2MIN PRN PRN Reason: Opiate Reversal Ondansetron HCl (Ondansetron 4 Mg/2 Ml Inj) 4 mg IV Q4HR PRN PRN Reason: Nausea And Vomiting Last Admin: 05/23/25 18:43 Dose: 4 mg Documented By: Admin: 05/23/25 06:15 Dose: 4 mg Documented By: ABHINAV Ondansetron HCl (Ondansetron 4 Mg/2 Ml Inj) 4 mg IV Q4HR PRN PRN Reason: Nausea And Vomiting Primidone (Primidone 50 Mg Tablet) 375 mg PO DAILY [facility] Last Admin: 05/25/25 08:55 Dose: Not Given Documented By: SINDHU Venlafaxine HCl (Venlafaxine Er 75 Mg Cap) 300 mg PO DAILY [facility] Last Admin: 05/25/25 08:49 Dose: 300 mg Documented By: SINDHU Discontinued Medications Hydromorphone HCl (Hydromorphone Hcl 0.5 Mg/0.5 Ml Syringe) 0.5 mg IV NOW ONE Stop: 05/23/25 05:48 Last Admin: 05/23/25 06:16 Dose: 0.5 mg Documented By: ABHINAV Potassium Phos/Sodium Phos (Sodium,Potassium Phosphates Packet) 2 each PO NOW ONE Stop: 05/24/25 16:46 Last Admin: 05/24/25 17:27 Dose: 2 each Documented By: SINDHU Vital Signs Vital signs: Vital Signs - 8 hr 05/23/25 05:42 12/25/25 05:42 05/23/25 05:44 Temperature 97.7 F Pulse Rate 73 76 76 Respiratory Rate 24 Blood Pressure 203/98 H Pulse Oximetry 99 86 L 99 Oxygen Delivery Method Room Air 05/23/25 05:44 05/23/25 06:00 05/23/25 06:00 Temperature Pulse Rate 74 Respiratory Rate Blood Pressure 203/98 H 181/86 H Pulse Oximetry 99 Oxygen Delivery Method 05/23/25 06:30 05/23/25 06:30 05/23/25 07:00 Temperature Pulse Rate 75 76 Respiratory Rate Blood Pressure 157/77 H Pulse Oximetry 94 98 Oxygen Delivery Method 05/23/25 07:30 05/23/25 08:00 05/23/25 08:30 Temperature Pulse Rate 86 86 91 H Respiratory Rate 16 Blood Pressure Pulse Oximetry 98 95 95 Oxygen Delivery Method <Susu Beltran MD - Last Filed: 05/23/25 08:40> Orders Ordered: Acetaminophen (Acetaminophen 325 Mg Tablet) 650 mg PO Q4H PRN PRN Reason: Headache Last Admin: 05/25/25 07:39 Dose: 650 mg Documented By: Admin: 05/24/25 19:07 Dose: 650 mg Documented By: SINDHU Atorvastatin Calcium (Atorvastatin 20 Mg Tablet) 20 mg PO DAILY [facility] Last Admin: 05/25/25 08:55 Dose: Not Given Documented By: SINDHU Cyclobenzaprine HCl (Cyclobenzaprine 10 Mg Tablet) 10 mg PO TID PRN PRN Reason: Muscle Spasm Diazepam (Diazepam 5 Mg Tablet) 5 mg PO DAILY PRN PRN Reason: anxiety Enoxaparin Sodium (Enoxaparin 40 Mg/0.4 Ml Syringe) 40 mg SUBCUT DAILY [facility] Last Admin: 05/25/25 08:49 Dose: 40 mg Documented By: SINDHU Estradiol (Estradiol 0.5 Mg Tablet) 1 mg PO DAILY [facility] Last Admin: 05/25/25 09:51 Dose: Not Given Documented By: SINDHU Hydromorphone HCl (Hydromorphone 1 Mg/Ml Syringe) 1 mg IV Q2H PRN PRN Reason: Pain, Severe (7-10) Last Admin: 05/24/25 13:54 Dose: 1 mg Documented By: Admin: 05/24/25 08:36 Dose: 1 mg Documented By: Admin: 05/24/25 04:35 Dose: 1 mg Documented By: Admin: 05/24/25 02:25 Dose: 1 mg Documented By: Admin: 05/23/25 21:03 Dose: 1 mg Documented By: Admin: 05/23/25 18:36 Dose: 1 mg Documented By: Admin: 05/23/25 14:36 Dose: 1 mg Documented By: Admin: 05/23/25 10:13 Dose: 1 mg Documented By: FALGUNI Lactated Ringer's (Lactated Ringers) 1,000 mls @ 100 mls/hr IV CONT [facility] Last Admin: 05/25/25 02:32 Dose: 100 mls/hr Documented By: Infusion: 05/25/25 02:32 Dose: Infused Documented By: Admin: 05/24/25 16:35 Dose: 100 mls/hr Documented By: Infusion: 05/24/25 16:22 Dose: Infused Documented By: Admin: 05/24/25 06:22 Dose: 100 mls/hr Documented By: Infusion: 05/24/25 06:15 Dose: Infused Documented By: Admin: 05/23/25 20:15 Dose: 100 mls/hr Documented By: Infusion: 05/23/25 20:15 Dose: Infused Documented By: Admin: 05/23/25 10:32 Dose: 100 mls/hr Documented By: FALGUNI Naloxone HCl (Naloxone 0.4 Mg/Ml Vial) 0.2 mg IV Q2MIN PRN PRN Reason: Opiate Reversal Ondansetron HCl (Ondansetron 4 Mg/2 Ml Inj) 4 mg IV Q4HR PRN PRN Reason: Nausea And Vomiting Last Admin: 05/23/25 18:43 Dose: 4 mg Documented By: Admin: 05/23/25 06:15 Dose: 4 mg Documented By: ABHINAV Ondansetron HCl (Ondansetron 4 Mg/2 Ml Inj) 4 mg IV Q4HR PRN PRN Reason: Nausea And Vomiting Primidone (Primidone 50 Mg Tablet) 375 mg PO DAILY [facility] Last Admin: 05/25/25 08:55 Dose: Not Given Documented By: SINDHU Venlafaxine HCl (Venlafaxine Er 75 Mg Cap) 300 mg PO DAILY [facility] Last Admin: 05/25/25 08:49 Dose: 300 mg Documented By: SINDHU Discontinued Medications Hydromorphone HCl (Hydromorphone Hcl 0.5 Mg/0.5 Ml Syringe) 0.5 mg IV NOW ONE Stop: 05/23/25 05:48 Last Admin: 05/23/25 06:16 Dose: 0.5 mg Documented By: ABHINAV Potassium Phos/Sodium Phos (Sodium,Potassium Phosphates Packet) 2 each PO NOW ONE Stop: 05/24/25 16:46 Last Admin: 05/24/25 17:27 Dose: 2 each Documented By: SINDHU Vital Signs Vital signs: Vital Signs - 8 hr 05/23/25 05:42 05/23/25 05:42 05/23/25 05:44 Temperature 97.7 F Pulse Rate 73 76 76 Respiratory Rate 24 Blood Pressure 203/98 H Pulse Oximetry 99 86 L 99 Oxygen Delivery Method Room Air 05/23/25 05:44 05/23/25 06:00 05/23/25 06:00 Temperature Pulse Rate 74 Respiratory Rate Blood Pressure 203/98 H 181/86 H Pulse Oximetry 99 Oxygen Delivery Method 05/23/25 06:30 05/23/25 06:30 05/23/25 07:00 Temperature Pulse Rate 75 76 Respiratory Rate Blood Pressure 157/77 H Pulse Oximetry 94 98 Oxygen Delivery Method 05/23/25 07:30 05/23/25 08:00 05/23/25 08:30 Temperature Pulse Rate 86 86 91 H Respiratory Rate 16 Blood Pressure Pulse Oximetry 98 95 95 Oxygen Delivery Method MDM - Abdominal Pain <Elsie Wyman MD - Last Filed: 05/25/25 11:15> Lab Data 05/25/25 09:28 05/25/25 09:28 Labs: Lab Results 05/23/25 05/23/25 Range/Units 06:08 08:10 WBC 11.7 H (4.5-11.0) X10^3/uL RBC 5.04 (4.0-5.2) X10^6/uL Hgb 14.6 (12.0-16.0) g/dL Hct 43.7 (36-46) % MCV 86.7 (80-100) fL MCH 29.0 (26-34) PG MCHC 33.4 (30-36) % RDW 15.8 H (11.6-14.8) % Plt Count 298 (150-400) X10^3/uL Neut % (Auto) 83.8 H (50-75) % Lymph % (Auto) 9.8 L (25-40) % [place] % (Auto) 5.7 (3-14) % Eos % (Auto) 0.1 L (2-4) % Baso % (Auto) 0.6 (0-2) % Neut # (Auto) 9800 H (5691-7113) /uL Lymph # (Auto) 1100 (8913-0005) /uL [place] # (Auto) 700 (0-900) /uL Eos # (Auto) 0 (0-450) /uL Baso # (Auto) 100 (0-100) /uL Sodium 137 (137-145) mmol/L Potassium 3.6 (3.4-5.1) mmol/L Chloride 99 (98-107) mmol/L Carbon Dioxide 27 (22-32) mmol/L BUN 15 (7-17) mg/dL Creatinine 0.68 (0.52-1.04) mg/dL Estimated GFR > 60 (>60) mL/min BUN/Creatinine Ratio 22.1 H (6-22) Glucose 165 H (70-99) mg/dL Lactate 2.8 H 3.2 H (0.7-2.1) mmol/L Calcium 9.8 (8.4-10.2) mg/dL Phosphorus 2.7 L (2.8-4.1) mg/dL Magnesium 1.8 (1.6-2.3) mg/dL Total Bilirubin 0.5 (0.2-1.3) mg/dL AST 42 H (14-36) IU/L ALT 44 H (<35) IU/L Alkaline Phosphatase 147 H (38-126) U/L Total Protein 8.8 H (6.3-8.2) g/dL Albumin 4.9 (3.5-5.0) g/dL Globulin 3.9 (1.7-4.1) g/dL Albumin/Globulin Ratio 1.3 (1.0-2.8) Lipase 181 (23-300) U/L Imaging Data CT scan - abdomen/pelvis: Radiologist's Impression: PROCEDURE: CT ABDOMEN PELVIS W CON INDICATIONS: abdominal pain TECHNIQUE: After the administration of intravenous contrast, axial sections acquired from the lung bases to the pubic symphysis. Coronal and sagittal reformats were performed. For radiation dose reduction, the following was used: automated exposure control, adjustment of mA and/or kV according to patient size. COMPARISON: [facility], CT, CT ABDOMEN PELVIS W CON, 08/06/2024, 6:25. FINDINGS: Image quality: There is artifact associated with the metallic hardware. Lower Chest: There is a small to moderate hiatal hernia. Note is made of thickening of the distal esophageal wall. ABDOMEN: Liver: No solid mass. Gallbladder: No radiopaque gallstones or wall thickening. Biliary ducts: No biliary dilation. Pancreas: No ductal dilation. Spleen: Size is within normal limits. At least 1 calcified granuloma can be seen within the spleen. Adrenal Glands: No adrenal nodules. Kidneys and Ureters: No hydronephrosis. No solid mass. No complex renal cystic lesion which requires follow up. Stomach and Bowel: The stomach is distended with fluid. Abnormally dilated loops of small bowel are seen, measuring up to 4.3 cm. The distal small bowel loops are decompressed. There is a transition point present within the right lower quadrant. There is a kink seen within the small bowel, as on series 3, image 34, which may be related to an adhesion.The colon is relatively decompressed. Peritoneum: There is a small amount of free intraperitoneal fluid. No free air. Ventral Wall: No significant ventral hernia. Abdominal Nodes: No retroperitoneal or mesenteric adenopathy by size criteria. Vessels: Aorta and inferior vena cava are normal in size. PELVIS: Pelvic Organs: Unremarkable. Bladder: No bladder wall thickening, accounting for underdistention. Pelvic Nodes: No enlarged lymph nodes. Miscellaneous: No inguinal hernias are seen. Bones: No aggressive osseous abnormality. Lumbar postoperative and degenerative changes are seen. Mild levoconvex scoliotic curvature is noted. IMPRESSION: Small-bowel obstruction, with a transition point seen within the right lower quadrant. MDM Narrative Medical decision making narrative: Patient is a 79-year-old with a history of ex lap presents with nausea, vomiting, abdominal pain. Differential diagnosis: Bowel obstruction, gastritis, enteritis, colitis, cholecystitis, appendicitis, diverticulitis other. Labs: Leukocytosis (WBC 11.7), left shift (neut 83.8), no anemia or thrombocytopenia. CMP largely normal. Lactate 2.8. LFTs with AST 42, ALT 44, alk-phos 147. Lipase 181. Imaging: CT abdomen: Consistent with small bowel obstruction on my read. Awaiting Radiology final read. ED course: Patient arrived to the ED afebrile, hypertensive, other other vitals within normal range with 1 day history of nausea, vomiting and abdominal pain, and constipation for the last 2 days requesting bowel regimen. In the ED labs and imaging were completed and consistent with small-bowel obstruction. Patient was signed out to Dr. Susu Donald at [address] abdomen and pelvis, pain control, and likely admission to the hospital. Elsie Wyman MD Emergency Medicine <Suus Beltran MD - Last Filed: 05/23/25 08:40> Lab Data Labs: Lab Results 05/23/25 05/23/25 Range/Units 06:08 08:10 WBC 11.7 H (4.5-11.0) X10^3/uL RBC 5.04 (4.0-5.2) X10^6/uL Hgb 14.6 (12.0-16.0) g/dL Hct 43.7 (36-46) % MCV 86.7 (80-100) fL MCH 29.0 (26-34) PG MCHC 33.4 (30-36) % RDW 15.8 H (11.6-14.8) % Plt Count 298 (150-400) X10^3/uL Neut % (Auto) 83.8 H (50-75) % Lymph % (Auto) 9.8 L (25-40) % [place] % (Auto) 5.7 (3-14) % Eos % (Auto) 0.1 L (2-4) % Baso % (Auto) 0.6 (0-2) % Neut # (Auto) 9800 H (9694-7577) /uL Lymph # (Auto) 1100 (2750-4224) /uL [place] # (Auto) 700 (0-900) /uL Eos # (Auto) 0 (0-450) /uL Baso # (Auto) 100 (0-100) /uL Sodium 137 (137-145) mmol/L Potassium 3.6 (3.4-5.1) mmol/L Chloride 99 (98-107) mmol/L Carbon Dioxide 27 (22-32) mmol/L BUN 15 (7-17) mg/dL Creatinine 0.68 (0.52-1.04) mg/dL Estimated GFR > 60 (>60) mL/min BUN/Creatinine Ratio 22.1 H (6-22) Glucose 165 H (70-99) mg/dL Lactate 2.8 H 3.2 H (0.7-2.1) mmol/L Calcium 9.8 (8.4-10.2) mg/dL Phosphorus 2.7 L (2.8-4.1) mg/dL Magnesium 1.8 (1.6-2.3) mg/dL Total Bilirubin 0.5 (0.2-1.3) mg/dL AST 42 H (14-36) IU/L ALT 44 H (<35) IU/L Alkaline Phosphatase 147 H (38-126) U/L Total Protein 8.8 H (6.3-8.2) g/dL Albumin 4.9 (3.5-5.0) g/dL Globulin 3.9 (1.7-4.1) g/dL Albumin/Globulin Ratio 1.3 (1.0-2.8) Lipase 181 (23-300) U/L MDM Narrative Medical decision making narrative: Patient is a 79-year-old with a history of ex lap presents with nausea, vomiting, abdominal pain. Differential diagnosis: Bowel obstruction, gastritis, enteritis, colitis, cholecystitis, appendicitis, diverticulitis other. Labs: Leukocytosis (WBC 11.7), left shift (neut 83.8), no anemia or thrombocytopenia. CMP largely normal. Lactate 2.8. LFTs with AST 42, ALT 44, alk-phos 147. Lipase 181. Imaging: CT abdomen: Consistent with small bowel obstruction on my read. Awaiting Radiology final read. ED course: Patient arrived to the ED afebrile, hypertensive, other other vitals within normal range with 1 day history of nausea, vomiting and abdominal pain, and constipation for the last 2 days requesting bowel regimen. In the ED labs and imaging were completed and consistent with small-bowel obstruction. Patient was signed out to Dr. Susu Beltran at [address] abdomen and pelvis, pain control, and likely admission to the hospital. Elsie Wyman MD Emergency Medicine 710 Care is assumed. Patient is independently evaluated, chart is reviewed After Dilaudid she is much more comfortable. Her abdomen is distended but there is no rebound or guarding. Her pain is adequately controlled. Her vomiting has been controlled at this point CBC shows mild leukocytosis at 11.7, Chemistries show mild elevation in AST at 42 ALT at 44 alk-phos at 47. Bilirubin is normal. Renal function electrolytes are appropriate Lactate slightly elevated at 2.8 Lipase is normal Discussion: Approximately 12 years ago patient had small-bowel obstruction due to adhesions that was managed medically. Prior to that she had had multiple admissions for ?constipation? eventually underwent exploratory laparotomy with adhesions noted in relieved. She has not had significant issues over the ensuing 12 years but notes that she still has difficulties with constipation reports her last bowel movement was approximately 2 days ago. Her pain started at 10:00 p.m. last night. She has been vomiting but afebrile CT scan shows mild to moderate grade small bowel obstruction with transition point in the right lower abdomen likely due to adhesion. Nonprogressive [id number] size fluid filled hiatal hernia [id number] mostly fluid-filled distention of the majority of the stomach no duodenal distention. Discussed findings with the patient and her daughter. Explain need for NG tube to which she is amenable. We will discuss with the hospitalist service we will anticipate hospitalization for medical management and request surgical consultation as well Fluids will be started. With leukocytosis and a slightly elevated lactic acid will administer Zosyn however I suspect her lactic is elevated due to vomiting rather than infection. It will be repeated. I do not suspect sepsis at this time. Patient is full code Treatment: Fluids, NG tube placement, parenteral narcotics, antibiotics Discharge Plan Departure Patient Disposition: Admitted As Inpatient Clinical Impression: Small bowel obstruction, Nausea and vomiting Admit Date/Time: 05/23/25 08:40 Admit Provider: Joseph Townsend
[2025-05-23 07:51] LABS: Reflexed Lactate in 2 Hours Y
[2025-05-23 08:31] LABS: Lactate 2HR (Lactic Acid Rflx) 3.2 mmol/L (0.7-2.1)
--- NOTE | 2025-05-23 08:37 | PM.CN.IH.1 ---
History of Present Illness Consult details Date Patient Seen: 05/23/25 Time Patient Seen: 08:37 Chief complaint: Abdominal Pain, Vomiting Reason for consult: SBO Requesting provider: Susu Beltran Narrative: Surgery consult requested by ED for 79yo F, SBO. Patient had ex lap for SBO in 2011, another SBO several years ago managed medically. Presented to ED with abd pain, n/v. CT demonstrates dilated stomach, SBO with transition point in RLQ. CT images demonstrate minimal air in colon, significant stool burden. WBC 11, K 3.6, lactate 3.2, LFTs 0.5/42/44/147. Meds Home Medications and Allergies Home Medications ?Medication ?Instructions ?Recorded ?Confirmed ?Type diazepam 5 mg tablet (Valium) 5 mg PO HSP PRN ##0 03/12/20 11/14/24 History cyclobenzaprine 10 mg tablet 10 mg PO TID PRN muscle spasm #14 07/29/22 11/14/24 Rx tabs estradiol 1 mg tablet 1 mg PO DAILY 04/15/23 11/14/24 History venlafaxine 150 mg 300 mg PO DAILY 04/15/23 11/14/24 History capsule,extended release 24 hr primidone 250 mg tablet 375 mg PO DAILY 11/14/24 11/14/24 History rosuvastatin 20 mg tablet 10 mg PO DAILY 11/14/24 11/14/24 History Allergies Allergy/AdvReac Type Severity Reaction Status Date / Time aspirin (ASPIRIN) Allergy Unknown Verified 05/23/25 05:43 Exam Vital Signs (past 8 hours): - 05/23/25 05:42 05/23/25 05:42 05/23/25 05:44 Temperature 97.7 F Pulse Rate 73 76 76 Respiratory Rate 24 Blood Pressure 203/98 H Pulse Oximetry 99 86 L 99 Oxygen Delivery Method Room Air 05/23/25 05:44 05/23/25 06:00 05/23/25 06:00 Temperature Pulse Rate 74 Respiratory Rate Blood Pressure 203/98 H 181/86 H Pulse Oximetry 99 Oxygen Delivery Method 05/23/25 06:30 05/23/25 06:30 05/23/25 07:00 Temperature Pulse Rate 75 76 Respiratory Rate Blood Pressure 157/77 H Pulse Oximetry 94 98 Oxygen Delivery Method 05/23/25 07:30 05/23/25 08:00 05/23/25 08:30 Temperature Pulse Rate 86 86 91 H Respiratory Rate 16 Blood Pressure Pulse Oximetry 98 95 95 Oxygen Delivery Method Oxygen Delivery Method Room Air Narrative Exam Narrative: Const General: NGT in place, more comfortable after IV pain meds Orientation: alert and oriented x3 Resp Effort & Inspection: normal respiratory effort and able to speak in complete sentences Cardio Rate: regular rate GI Palpation: soft, markedly distended, +tympany, healed midline incision, diffusely tender, non-peritoneal Extrem General: no pedal edema and no calf tenderness Objective Labs 05/23/25 06:08 05/23/25 06:08 Labs: Laboratory Results - last 24 hr 05/23/25 05/23/25 06:08 08:10 WBC 11.7 H RBC 5.04 Hgb 14.6 Hct 43.7 MCV 86.7 MCH 29.0 MCHC 33.4 RDW 15.8 H Plt Count 298 Neut % (Auto) 83.8 H Lymph % (Auto) 9.8 L [place] % (Auto) 5.7 Eos % (Auto) 0.1 L Baso % (Auto) 0.6 Neut # (Auto) 9800 H Lymph # (Auto) 1100 [place] # (Auto) 700 Eos # (Auto) 0 Baso # (Auto) 100 Sodium 137 Potassium 3.6 Chloride 99 Carbon Dioxide 27 BUN 15 Creatinine 0.68 Estimated GFR > 60 BUN/Creatinine Ratio 22.1 H Glucose 165 H Lactate 2.8 H 3.2 H Calcium 9.8 Total Bilirubin 0.5 AST 42 H ALT 44 H Alkaline Phosphatase 147 H Total Protein 8.8 H Albumin 4.9 Globulin 3.9 Albumin/Globulin Ratio 1.3 Lipase 181 [facility] Medical History Hearing loss (~2017) Plantar warts (~1965) Chronic cough (~2009) Headache Benign familial tremor Shoulder pain Osteoporosis (~2010) Osteopenia Chronic back pain (~2009) Carpal tunnel syndrome (~1983) Mumps (~1948) Measles (~1948) Chicken pox (~1948) History of irregular menstrual cycles (~1989) Genital warts (~1969) Chlamydia (~1982) Abnormal Pap smear of cervix (~10/21/00) Hemorrhoid (~1979) Hyperlipidemia (~2002) Depression (~195) Hormone replacement therapy Surgical History Anesthesia Intestinal adhesions (~02/2012) S/P lumbar fusion (~01/2012) S/P cervical spinal fusion (~2009) History of bunionectomy (~1989) History of cataract removal with insertion of prosthetic lens Family History Father Cirrhosis of liver Tobacco & Substance Use Smoking Status: Never smoker Assessment & Plan Assessment and plan (1) Small bowel obstruction: Status: Acute Plan SBO NGT NPO IVF Recommend replacing K, Mg, Phos as indicated Plan gastrografin challenge tomorrow after period of GI decompression Will follow Time-Based Coding :: [TOTAL MINUTES] spent with patient and on the chart (including review of chart, obtaining history, exam, reviewing outside data, placing orders, documenting exam and treatment plan, and counseling patient) on [DATE]. PROFEE Charge Codes Inpatient or Observation consultation: 04061
[2025-05-23 09:26] LABS: Magnesium 1.8 mg/dL (1.6-2.3); Phosphorous 2.7 mg/dL (2.8-4.1)
[2025-05-23 09:54] LABS: Add Manual Diff / Slide Review NO; Hematocrit 41.3 % (36-46); Hemoglobin 13.8 g/dL (12.0-16.0); Lymphocytes Absolute Auto 1000 /uL (1100-4500); Mean Corpuscular HGB Conc 33.4 % (30-36); Mean Corpuscular Hemoglobin 28.9 PG (26-34); Mean Corpuscular Volume 86.6 fL (80-100); Platelet Count 276 X10^3/uL (150-400)
[2025-05-23 10:04] LABS: Alanine Aminotransferase 38 IU/L (<35); Albumin 4.5 g/dL (3.5-5.0); Albumin Globulin Ratio 1.3 (1.0-2.8); Alkaline Phosphatase 127 U/L (38-126); Blood Urea Nitrogen 15 mg/dL (7-17); Calcium 8.9 mg/dL (8.4-10.2); Carbon Dioxide 29 mmol/L (22-32); Chloride 101 mmol/L (98-107); Estimated Glomerular Filt Rate > 60 mL/min (>60); Globulin 3.4 g/dL (1.7-4.1); Glucose 144 mg/dL (70-99); HEMOLYSIS < 15 (0-50); Potassium 4.2 mmol/L (3.4-5.1); Sodium 137 mmol/L (137-145); Total Protein 7.9 g/dL (6.3-8.2)
--- NOTE | 2025-05-23 10:12 | PC.NURSE ---
Report given to LUCY Thornton ACU
[2025-05-23] MEDS: LACTATED RINGERS 1,000 ML 100 ML IV ×2 (10:32→20:15)
--- NOTE | 2025-05-23 17:40 | P.HP_ITS ---
History of Present Illness History of Present Illness Date Patient Seen: 05/23/25 Chief complaint: Abdominal Pain, Vomiting constipation possible SBO Narrative: Chief complaint: Distended stomach nausea and vomiting small-bowel obstruction and heavy stool burden History of present illness: 05/23: 79-year-old female with a history of bowel obstruction status post surgery in 2011 presented with the abdominal pain nausea and vomiting. Findings of the [facility] emergency department: CT with dilated stomach small bowel obstruction and transition point right lower quadrant and significant stool burden White count 71566 with left shift lactate 3.2 The remainder of the hemogram and chemistries were unremarkable Review of systems: No fever or chills rigors No chest pain palpitations shortness for breath cough No urinary symptoms No paresthesia paresis No unusual weight loss or weight gain Physical exam: Elderly female male appearing in obvious discomfort HEENT unremarkable Heart rate and rhythm regular Lungs clear Abdomen distended nasogastric tube in place Bowel sounds scant Neuro nonfocal Extremities no edema Assessment and plan Obstipation and small-bowel obstruction * NPO * IV fluid resuscitation replace electrolytes potassium magnesium phosphorus * Gastrografin challenge tomorrow * Lactate with enemas DVT prophylaxis: * Not indicated due to short stay consider starting tomorrow Code status: * Full code blue Disposition: * Inpatient expect 2-3 days Time based billing: * 55 minutes were involved in evaluation of this patient including [id number] evaluation physical examination discussion with other providers review of objective laboratory and imaging findings including direct visualization of imaging and discussion of the plan with the family members [facility] Medical History Hearing loss (~2017) Plantar warts (~1965) Chronic cough (~2009) Headache Benign familial tremor Shoulder pain Osteoporosis (~2010) Osteopenia Chronic back pain (~2009) Carpal tunnel syndrome (~1983) Mumps (~1948) Measles (~1948) Chicken pox (~1948) History of irregular menstrual cycles (~1989) Genital warts (~1969) Chlamydia (~1982) Abnormal Pap smear of cervix (~10/21/00) Hemorrhoid (~1979) Hyperlipidemia (~2002) Depression (~1957) Hormone replacement therapy Surgical History Anesthesia Intestinal adhesions (~02/2012) S/P lumbar fusion (~01/2012) S/P cervical spinal fusion (~2009) History of bunionectomy (~1989) History of cataract removal with insertion of prosthetic lens Family History Father Cirrhosis of liver Social History household members: spouse Smoking Status: Never smoker alcohol intake: never Meds Home Medications and Allergies Home Medications ?Medication ?Instructions ?Recorded ?Confirmed ?Type diazepam 5 mg tablet (Valium) 5 mg PO HSP PRN anxiety ##0 03/12/20 05/23/25 History cyclobenzaprine 10 mg tablet 10 mg PO TID PRN muscle s pasm #14 07/29/22 05/23/25 Rx tabs estradiol 1 mg tablet 1 mg PO DAILY 04/15/2305/23 History venlafaxine 150 mg 300 mg PO DAILY 04/15/23 History capsule,extended release 24 hr primidone 250 mg tablet 375 mg PO DAILY 11/14/24 History rosuvastatin 20 mg tablet 10 mg PO DAILY 11/14/2404/30 History Allergies Allergy/AdvReac Type Severity Reaction Status Date / Time aspirin (ASPIRIN) Allergy Unknown Verified 05/23/25 05:43 Exam Vital Signs (past 8 hours): - 05/23/25 10:00 05/23/25 10:44 05/23/25 11:00 Temperature 98.0 F Pulse Rate 98 H 98 H Respiratory Rate 16 Blood Pressure 146/80 H Pulse Oximetry 96 96 Oxygen Delivery Method Nasal Cannula Oxygen Flow Rate 1.5 Oxygen Delivery Method Nasal Cannula Oxygen Flow Rate 1.5 Objective Labs 05/23/25 09:45 05/23/25 09:45 Labs: Laboratory Results - last 24 hr 05/23/25 05/23/25 05/23/25 06:08 08:10 09:45 WBC 11.7 H 15.5 H RBC 5.04 4.78 Hgb 14.6 13.8 Hct 43.7 41.3 MCV 86.7 86.6 MCH 29.0 28.9 MCHC 33.4 33.4 RDW 15.8 H 15.9 H Plt Count 298 276 Neut % (Auto) 83.8 H 87.7 H Lymph % (Auto) 9.8 L 6.6 L [place] % (Auto) 5.7 5.3 Eos % (Auto) 0.1 L 0.2 L Baso % (Auto) 0.6 0.2 Neut # (Auto) 9800 H 73413 H Lymph # (Auto) 1100 1000 L [place] # (Auto) 700 800 Eos # (Auto) 0 0 Baso # (Auto) 100 0 Sodium 137 137 Potassium 3.6 4.2 Chloride 99 101 Carbon Dioxide 27 29 BUN 15 15 Creatinine 0.68 0.63 Estimated GFR > 60 > 60 BUN/Creatinine Ratio 22.1 H 23.8 H Glucose 165 H 144 H Lactate 2.8 H 3.2 H Calcium 9.8 8.9 Phosphorus 2.7 L Magnesium 1.8 Total Bilirubin 0.5 0.3 AST 42 H 39 H ALT 44 H 38 H Alkaline Phosphatase 147 H 127 H Total Protein 8.8 H 7.9 Albumin 4.9 4.5 Globulin 3.9 3.4 Albumin/Globulin Ratio 1.3 1.3 Lipase 181 Assessment & Plan Time-Based Coding :: [TOTAL MINUTES] spent with patient and on the chart (including review of chart, obtaining history, exam, reviewing outside data, placing orders, documenting exam and treatment plan, and counseling patient) on [DATE]. Quality VTE Deep Vein Thrombosis/Pulmonary Embolism Present on Admission: No
--- NOTE | 2025-05-24 06:00 | DI.RAD.S_ITS ---
PROCEDURE: XR ABDOMEN MIN 2V INDICATIONS: sbo TECHNIQUE: 2 views of the abdomen were acquired. COMPARISON: [facility], CT, CT ABDOMEN PELVIS W CON, 05/23/2025, 6:35. [facility], CR, ABDOMEN 3 VIEW, 09/20/2016, 6:29. FINDINGS: Surgical changes and devices: Surgical fusion of the lower lumbar spine. Gastric tube tip and side port project over the stomach. Bowel: Mild gaseous distension of the small bowel. Soft tissues: No masses; visualized solid organ contours appear normal in size. No suspicious abdominal calcifications. Bones: No suspicious bony abnormalities. IMPRESSION: Gastric tube tip and side port project over the stomach. Mild gaseous distension of the small bowel, decreased from prior. Dictated by: Sergio Alex M.D. on 05/25/2025 at 14:43 Approved by: Sergio Alex M.D. on 05/25/2025 at 14:44
[2025-05-24] MEDS: LACTATED RINGERS 1,000 ML 100 ML IV ×2 (06:22→16:35)
--- NOTE | 2025-05-24 08:00 | DI.RAD.S_ITS ---
PROCEDURE: XR GASTROGRAFIN CHALLENGE COMPARISON: [facility], CR, XR GASTROGRAFIN CHALLENGE, 08/06/2024, 13:43. INDICATIONS: SBO FINDINGS: A nasogastric tube is in place. There are surgical changes in the lumbar spine. Surgical changes of prior proximal gastric fundoplication and small hiatal hernia. Small bowel is diffusely opacified with oral contrast. Oral contrast is seen throughout most of the colon. No suspicious dilated small bowel loops. Organ shadows are within normal limits. Osseous structures are unremarkable. IMPRESSION: No evidence of small bowel obstruction. Dictated by: Brenda Elias M.D. on 05/25/2025 at 11:51 Approved by: Brenda Elias M.D. on 05/25/2025 at 11:53
[2025-05-24 09:23] VITALS: BP 140/70; PULSE 78; RESP 17; TEMP 37.2; O2SAT 94
[2025-05-24 09:50] VITALS: O2SAT 95
[2025-05-24 10:12] LABS: Add Manual Diff / Slide Review NO; Hematocrit 36.6 % (36-46); Hemoglobin 12.2 g/dL (12.0-16.0); Lymphocytes Absolute Auto 1200 /uL (1100-4500); Mean Corpuscular HGB Conc 33.3 % (30-36); Mean Corpuscular Hemoglobin 29.2 PG (26-34); Mean Corpuscular Volume 87.5 fL (80-100); Platelet Count 235 X10^3/uL (150-400)
[2025-05-24 10:24] LABS: Alanine Aminotransferase 27 IU/L (<35); Albumin 3.7 g/dL (3.5-5.0); Albumin Globulin Ratio 1.2 (1.0-2.8); Alkaline Phosphatase 103 U/L (38-126); Blood Urea Nitrogen 15 mg/dL (7-17); Calcium 8.3 mg/dL (8.4-10.2); Carbon Dioxide 30 mmol/L (22-32); Chloride 105 mmol/L (98-107); Estimated Glomerular Filt Rate > 60 mL/min (>60); Globulin 3.0 g/dL (1.7-4.1); Glucose 119 mg/dL (70-99); HEMOLYSIS < 15 (0-50); Potassium 4.0 mmol/L (3.4-5.1); Sodium 140 mmol/L (137-145); Total Protein 6.7 g/dL (6.3-8.2)
--- NOTE | 2025-05-24 12:09 | P.PN_ITS ---
Subjective Subjective Date Patient Seen: 05/24/25 Time Patient Seen: 12:09 Interval history: +BMs, liquid this morning NGT drainage 800/zero WBC 7; NLR 4.4 Exam Vital Signs (past 8 hours): - 05/24/25 09:14 05/24/25 09:23 05/24/25 09:50 Temperature 98.9 F Pulse Rate 78 Respiratory Rate 17 Blood Pressure 140/70 Pulse Oximetry 94 95 Oxygen Delivery Method Room Air Nasal Cannula Nasal Cannula Oxygen Flow Rate 2.5 Oxygen Delivery Method Nasal Cannula Oxygen Flow Rate 2.5 Narrative Exam Narrative: ABD: still distended, +tympany, non-peritoneal Objective Labs 05/24/25 10:03 05/24/25 10:03 Labs: Laboratory Results - last 24 hr 05/24/25 10:03 WBC 7.2 D RBC 4.18 Hgb 12.2 Hct 36.6 MCV 87.5 MCH 29.2 MCHC 33.3 RDW 16.0 H Plt Count 235 Neut % (Auto) 69.8 Lymph % (Auto) 16.5 L [place] % (Auto) 12.5 Eos % (Auto) 0.9 L Baso % (Auto) 0.3 Neut # (Auto) 5000 Lymph # (Auto) 1200 [place] # (Auto) 900 Eos # (Auto) 100 Baso # (Auto) 0 Sodium 140 Potassium 4.0 Chloride 105 Carbon Dioxide 30 BUN 15 Creatinine 0.72 Estimated GFR > 60 BUN/Creatinine Ratio 20.8 Glucose 119 H Calcium 8.3 L Total Bilirubin 0.3 AST 31 ALT 27 Alkaline Phosphatase 103 Total Protein 6.7 Albumin 3.7 Globulin 3.0 Albumin/Globulin Ratio 1.2 [facility] Medical History Hearing loss (~2017) Plantar warts (~1965) Chronic cough (~2009) Headache Benign familial tremor Shoulder pain Osteoporosis (~2010) Osteopenia Chronic back pain (~2009) Carpal tunnel syndrome (~1983) Mumps (~1948) Measles (~1948) Chicken pox (~1948) History of irregular menstrual cycles (~1989) Genital warts (~1969) Chlamydia (~1982) Abnormal Pap smear of cervix (~10/21/00) Hemorrhoid (~1979) Hyperlipidemia (~2002) Depression (~1957) Hormone replacement therapy Surgical History Anesthesia Intestinal adhesions (~02/2012) S/P lumbar fusion (~01/2012) S/P cervical spinal fusion (~2009) History of bunionectomy (~1989) History of cataract removal with insertion of prosthetic lens Family History Father Cirrhosis of liver Social History household members: spouse Smoking Status: Never smoker alcohol intake: never Assessment & Plan Assessment and plan (1) Small bowel obstruction: Status: Acute Plan SBO Continue NGT, NPO for now OK for ice chips GGC today Liquid BMs encouraging Recommend phos replacement (2.7) Will follow Time-Based Coding :: [TOTAL MINUTES] spent with patient and on the chart (including review of chart, obtaining history, exam, reviewing outside data, placing orders, documenting exam and treatment plan, and counseling patient) on [DATE]. 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
[2025-05-24 15:00] VITALS: O2SAT 95
--- NOTE | 2025-05-24 15:18 | CM.DANOTE ---
Initial DCP Assessment Note. Review EMR and PT Interview. Met with patient at bedside to discuss discharge needs.PT is alert x 4 sitting up in bed. No acute distress. Independent. Lives Spouse. ALTHEA Warren, will transport patient home upon discharge. [phone]. Payor:??MCR PCP: ?Dayana Love Summary & Plan:?79 y/o female arrived to the ED via POV c/o abd pain. Admitted INPT. Dx. SBO. Plan: NGT, pain control, Barium Swallow. Discharge Planning/Care Management CM Discharge Assessment Start: 05/23/25 10:44 Freq: Status: Active Protocol: Document 05/24/25 15:16 SM (Rec: 05/24/25 15:16 [id number]) Discharge Planning Assessment Advance Directives? Yes: POLST, DPOA for HC, HC Directive Advance Directives Yes on File History Provided By Patient Prior Living House Arrangements Household Members spouse Willing to Return to No Facility? Document 05/24/25 15:16 SM (Rec: 05/24/25 15:18 SM [id number]) Discharge Planning Assessment Assigned Discharge Avis Meier RN CM [employer] Gatherer Provider Dr. Dayana Love Insurance Medicare Advance Directives? Yes: POLST, DPOA for HC, HC Directive Advance Directives Yes on File History Provided By Patient Prior Living House Arrangements Household Members spouse Type of Drives own vehicle transporation used prior to admit Willing to Return to No Facility? Independent with ADL Yes 's Is patient alert and Yes oriented? Caregiver for Yes Another Barriers to No Discharge Transportation Briana [phone] Arrangement Referrals Initiated None needed Review Status In Process Please Provide Date 05/24/25 Initial DC Assessment Was Performed Next Review Type Continued Stay Review
--- NOTE | 2025-05-24 16:51 | P.PN_ITS ---
Subjective Subjective Date Patient Seen: 05/24/25 Time Patient Seen: 16:51 Interval history: Chief complaint: Distended stomach nausea and vomiting small-bowel obstruction and heavy stool burden History of present illness: 05/23: 79-year-old female with a history of bowel obstruction status post surgery in 2011 presented with the abdominal pain nausea and vomiting. [facility]: CT with dilated stomach small bowel obstruction and transition point right lower quadrant and significant stool burden White count 94132 with left shift lactate 3.2 The remainder of the hemogram and chemistries were unremarkable Hospital course: 05/24: Passed a Gastrografin all the way through to the rectum and is now having liquid stool NG tube was pulled started on clear liquids per surgery Review of systems: No fever or chills rigors No chest pain palpitations shortness for breath cough No urinary symptoms No paresthesia paresis No unusual weight loss or weight gain Physical exam: Elderly female male appearing in obvious discomfort HEENT unremarkable Heart rate and rhythm regular Lungs clear Abdomen soft with bowel sounds Bowel sounds scant Neuro nonfocal Extremities no edema Assessment and plan Obstipation and small-bowel obstruction * Resolved small bowel obstruction with Gastrografin challenge DVT prophylaxis: * Not indicated due to short stay consider starting tomorrow Code status: * Full code blue Disposition: * Inpatient expect 1-2 days more Time based billing: * 35 minutes were involved in evaluation of this patient including [id number] evaluation physical examination discussion with other providers review of objective laboratory and imaging findings including direct visualization of imaging and discussion of the plan with the family members Exam Vital Signs (past 8 hours): - 05/24/25 09:14 05/24/25 09:23 05/24/25 09:50 Temperature 98.9 F Pulse Rate 78 Respiratory Rate 17 Blood Pressure 140/70 Pulse Oximetry 94 95 Oxygen Delivery Method Room Air Nasal Cannula Nasal Cannula Oxygen Flow Rate 2.5 05/24/25 15:00 Temperature Pulse Rate Respiratory Rate Blood Pressure Pulse Oximetry 95 Oxygen Delivery Method Oxygen Flow Rate Oxygen Delivery Method Nasal Cannula Oxygen Flow Rate 2.5 Objective Labs 05/24/25 10:03 05/24/25 10:03 Labs: Laboratory Results - last 24 hr 05/24/25 10:03 WBC 7.2 D RBC 4.18 Hgb 12.2 Hct 36.6 MCV 87.5 MCH 29.2 MCHC 33.3 RDW 16.0 H Plt Count 235 Neut % (Auto) 69.8 Lymph % (Auto) 16.5 L [place] % (Auto) 12.5 Eos % (Auto) 0.9 L Baso % (Auto) 0.3 Neut # (Auto) 5000 Lymph # (Auto) 1200 [place] # (Auto) 900 Eos # (Auto) 100 Baso # (Auto) 0 Sodium 140 Potassium 4.0 Chloride 105 Carbon Dioxide 30 BUN 15 Creatinine 0.72 Estimated GFR > 60 BUN/Creatinine Ratio 20.8 Glucose 119 H Calcium 8.3 L Total Bilirubin 0.3 AST 31 ALT 27 Alkaline Phosphatase 103 Total Protein 6.7 Albumin 3.7 Globulin 3.0 Albumin/Globulin Ratio 1.2 PFSH Medical History Hearing loss (~2017) Plantar warts (~1965) Chronic cough (~2009) Headache Benign familial tremor Shoulder pain Osteoporosis (~2010) Osteopenia Chronic back pain (~2009) Carpal tunnel syndrome (~1983) Mumps (~1948) Measles (~1948) Chicken pox (~1948) History of irregular menstrual cycles (~1989) Genital warts (~1969) Chlamydia (~1982) Abnormal Pap smear of cervix (~10/21/00) Hemorrhoid (~1979) Hyperlipidemia (~2002) Depression (~1957) Hormone replacement therapy Surgical History Anesthesia Intestinal adhesions (~02/2012) S/P lumbar fusion (~01/2012) S/P cervical spinal fusion (~2009) History of bunionectomy (~1989) History of cataract removal with insertion of prosthetic lens Family History Father Cirrhosis of liver Social History household members: spouse Smoking Status: Never smoker alcohol intake: never Assessment & Plan Time-Based Coding :: [TOTAL MINUTES] spent with patient and on the chart (including review of chart, obtaining history, exam, reviewing outside data, placing orders, documenting exam and treatment plan, and counseling patient) on [DATE]. Quality VTE Deep Vein Thrombosis/Pulmonary Embolism Present on Admission: No
[2025-05-24] MEDS: SODIUM,POTASSIUM PHOSPHATES PACKET 2 EACH PO (17:27)
[2025-05-24 18:00] VITALS: BP 159/82; PULSE 92; RESP 19; TEMP 37.3; O2SAT 93
--- NOTE | 2025-05-24 18:06 | PC.NURSE ---
NG tube removed at 1640. Pt denied any nausea. Pt educated on advancement of diet to clear liquids and taking small sips to start out. Pt educated on no carbonated drinks.
[2025-05-24] MEDS: ACETAMINOPHEN 325 MG TABLET 650 MG PO (19:07)
[2025-05-24 20:00] VITALS: BP 140/51; PULSE 89; RESP 20; TEMP 36.6; O2SAT 95
[2025-05-25] MEDS: LACTATED RINGERS 1,000 ML 100 ML IV ×3 (02:32→22:27)
[2025-05-25] MEDS: ACETAMINOPHEN 325 MG TABLET 650 MG PO (07:39)
--- NOTE | 2025-05-25 08:19 | PM.PN.IH.1 ---
Subjective Subjective Date Patient Seen: 05/25/25 Time Patient Seen: 08:19 Interval history: No n/v with NG out yesterday Continues to have liquid BMs Exam Vital Signs (past 8 hours): Oxygen Delivery Method Room Air Oxygen Flow Rate 0 Narrative Exam Narrative: Const General: comfortable and no acute distress Orientation: alert and oriented x3 Resp Effort & Inspection: normal respiratory effort and able to speak in complete sentences Cardio Rate: regular rate GI Palpation: soft (NT), still distended with +tympany, but improved Extrem General: no pedal edema and no calf tenderness Objective Labs 05/24/25 10:03 05/24/25 10:03 Labs: Laboratory Results - last 24 hr 05/24/25 10:03 WBC 7.2 D RBC 4.18 Hgb 12.2 Hct 36.6 MCV 87.5 MCH 29.2 MCHC 33.3 RDW 16.0 H Plt Count 235 Neut % (Auto) 69.8 Lymph % (Auto) 16.5 L Shannon % (Auto) 12.5 Eos % (Auto) 0.9 L Baso % (Auto) 0.3 Neut # (Auto) 5000 Lymph # (Auto) 1200 [place] # (Auto) 900 Eos # (Auto) 100 Baso # (Auto) 0 Sodium 140 Potassium 4.0 Chloride 105 Carbon Dioxide 30 BUN 15 Creatinine 0.72 Estimated GFR > 60 BUN/Creatinine Ratio 20.8 Glucose 119 H Calcium 8.3 L Total Bilirubin 0.3 AST 31 ALT 27 Alkaline Phosphatase 103 Total Protein 6.7 Albumin 3.7 Globulin 3.0 Albumin/Globulin Ratio 1.2 [facility] Medical History Hearing loss (~2017) Plantar warts (~1965) Chronic cough (~2009) Headache Benign familial tremor Shoulder pain Osteoporosis (~2010) Osteopenia Chronic back pain (~2009) Carpal tunnel syndrome (~1983) Mumps (~1948) Measles (~1948) Chicken pox (~1948) History of irregular menstrual cycles (~1989) Genital warts (~1969) Chlamydia (~1982) Abnormal Pap smear of cervix (~10/21/00) Hemorrhoid (~1979) Hyperlipidemia (~2002) Depression (~1957) Hormone replacement therapy Surgical History Anesthesia Intestinal adhesions (~02/2012) S/P lumbar fusion (~01/2012) S/P cervical spinal fusion (~2009) History of bunionectomy (~1989) History of cataract removal with insertion of prosthetic lens Family History Father Cirrhosis of liver Social History household members: spouse Smoking Status: Never smoker alcohol intake: never Assessment & Plan Assessment and plan (1) Small bowel obstruction: Status: Acute Plan SBO No n/v with NG out yesterday Advance to full liquids True test will be tolerance of solid food Time-Based Coding :: [TOTAL MINUTES] spent with patient and on the chart (including review of chart, obtaining history, exam, reviewing outside data, placing orders, documenting exam and treatment plan, and counseling patient) on [DATE]. 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
[2025-05-25] MEDS: ENOXAPARIN 40 MG/0.4 ML SYRINGE SUBCUT (08:49)
[2025-05-25] MEDS: VENLAFAXINE ER 75 MG CAP 300 MG PO (08:49)
[2025-05-25 09:44] LABS: Add Manual Diff / Slide Review NO; Hematocrit 33.9 % (36-46); Hemoglobin 11.4 g/dL (12.0-16.0); Lymphocytes Absolute Auto 2500 /uL (1100-4500); Mean Corpuscular HGB Conc 33.7 % (30-36); Mean Corpuscular Hemoglobin 29.4 PG (26-34); Mean Corpuscular Volume 87.3 fL (80-100); Platelet Count 229 X10^3/uL (150-400)
[2025-05-25 09:57] LABS: Alanine Aminotransferase 29 IU/L (<35); Albumin 3.9 g/dL (3.5-5.0); Albumin Globulin Ratio 1.3 (1.0-2.8); Alkaline Phosphatase 102 U/L (38-126); Blood Urea Nitrogen 8 mg/dL (7-17); Calcium 8.2 mg/dL (8.4-10.2); Carbon Dioxide 27 mmol/L (22-32); Chloride 102 mmol/L (98-107); Estimated Glomerular Filt Rate > 60 mL/min (>60); Globulin 2.9 g/dL (1.7-4.1); Glucose 109 mg/dL (70-99); HEMOLYSIS < 15 (0-50); Potassium 3.5 mmol/L (3.4-5.1); Sodium 136 mmol/L (137-145); Total Protein 6.8 g/dL (6.3-8.2)
--- NOTE | 2025-05-25 11:46 | P.PN_ITS ---
Subjective Subjective Date Patient Seen: 05/25/25 Time Patient Seen: 11:47 Interval history: Chief complaint: Distended stomach nausea and vomiting small-bowel obstruction and heavy stool burden History of present illness: 05/23: 79-year-old female with a history of bowel obstruction status post surgery in 2011 presented with the abdominal pain nausea and vomiting. Findings of the [facility] emergency department: CT with dilated stomach small bowel obstruction and transition point right lower quadrant and significant stool burden White count 82195 with left shift lactate 3.2 The remainder of the hemogram and chemistries were unremarkable Hospital course: 05/24: Passed a Gastrografin all the way through to the rectum and is now having liquid stool NG tube was pulled started on clear liquids per surgery 05/25: Stomach is still quite distended with a lot of gas patient says she has not passing much gas but a little bit of the Gastrografin she is tolerating clear liquid diet and was ambulating Review of systems: No fever or chills rigors No chest pain palpitations shortness for breath cough No urinary symptoms No paresthesia paresis No unusual weight loss or weight gain Physical exam: Elderly female male appearing in obvious discomfort HEENT unremarkable Heart rate and rhythm regular Lungs clear Abdomen soft with bowel sounds tympanitic with gas Bowel sounds scant Neuro nonfocal Extremities no edema Assessment and plan Obstipation and small-bowel obstruction * Resolved small bowel obstruction with Gastrografin challenge * Still awaiting for normal intestinal motility to resume DVT prophylaxis: * Not indicated due to short stay consider starting tomorrow Code status: * Full code blue Disposition: * Inpatient expect 1-2 days more Time based billing: * 35 minutes were involved in evaluation of this patient including [id number] evaluation physical examination discussion with other providers review of objective laboratory and imaging findings including direct visualization of imaging and discussion of the plan with the family members Exam Vital Signs (past 8 hours): Oxygen Delivery Method Room Air Oxygen Flow Rate 0 Objective Labs 05/25/25 09:28 05/25/25 09:28 Labs: Laboratory Results - last 24 hr 05/25/25 09:28 WBC 9.6 RBC 3.88 L Hgb 11.4 L Hct 33.9 L MCV 87.3 MCH 29.4 MCHC 33.7 RDW 16.0 H Plt Count 229 Neut % (Auto) 64.9 Lymph % (Auto) 26.3 [place] % (Auto) 7.8 Eos % (Auto) 0.5 L Baso % (Auto) 0.5 Neut # (Auto) 6200 Lymph # (Auto) 2500 [place] # (Auto) 700 Eos # (Auto) 100 Baso # (Auto) 100 Sodium 136 L Potassium 3.5 Chloride 102 Carbon Dioxide 27 BUN 8 Creatinine 0.66 Estimated GFR > 60 BUN/Creatinine Ratio 12.1 Glucose 109 H Calcium 8.2 L Total Bilirubin 0.4 AST 46 H ALT 29 Alkaline Phosphatase 102 Total Protein 6.8 Albumin 3.9 Globulin 2.9 Albumin/Globulin Ratio 1.3 PFSH Medical History Hearing loss (~2017) Plantar warts (~1965) Chronic cough (~2009) Headache Benign familial tremor Shoulder pain Osteoporosis (~2010) Osteopenia Chronic back pain (~2009) Carpal tunnel syndrome (~1983) Mumps (~1948) Measles (~1948) Chicken pox (~1948) History of irregular menstrual cycles (~1989) Genital warts (~1969) Chlamydia (~1982) Abnormal Pap smear of cervix (~10/21/00) Hemorrhoid (~1979) Hyperlipidemia (~2002) Depression (~1957) Hormone replacement therapy Surgical History Anesthesia Intestinal adhesions (~02/2012) S/P lumbar fusion (~01/2012) S/P cervical spinal fusion (~2009) History of bunionectomy (~1989) History of cataract removal with insertion of prosthetic lens Family History Father Cirrhosis of liver Social History household members: spouse Smoking Status: Never smoker alcohol intake: never Assessment & Plan Time-Based Coding :: [TOTAL MINUTES] spent with patient and on the chart (including review of chart, obtaining history, exam, reviewing outside data, placing orders, documenting exam and treatment plan, and counseling patient) on [DATE]. Quality VTE Deep Vein Thrombosis/Pulmonary Embolism Present on Admission: No
[2025-05-25 15:01] VITALS: BP 144/77; PULSE 80; RESP 18; TEMP 37.1; O2SAT 97
[2025-05-25 20:00] VITALS: BP 160/74; PULSE 87; RESP 20; TEMP 37.5; O2SAT 96
[2025-05-25 20:05] VITALS: TEMP 36.5
[2025-05-26 01:30] VITALS: BP 150/78; PULSE 76; RESP 18; TEMP 37.1; O2SAT 92
[2025-05-26] MEDS: LACTATED RINGERS 1,000 ML 100 ML IV (06:33)
[2025-05-26] MEDS: VENLAFAXINE ER 75 MG CAP 300 MG PO (08:21)
[2025-05-26 09:04] LABS: Add Manual Diff / Slide Review NO; Hematocrit 35.6 % (36-46); Hemoglobin 11.9 g/dL (12.0-16.0); Lymphocytes Absolute Auto 2000 /uL (1100-4500); Mean Corpuscular HGB Conc 33.6 % (30-36); Mean Corpuscular Hemoglobin 29.2 PG (26-34); Mean Corpuscular Volume 86.8 fL (80-100); Platelet Count 254 X10^3/uL (150-400)
[2025-05-26 09:16] LABS: Alanine Aminotransferase 34 IU/L (<35); Albumin 4.1 g/dL (3.5-5.0); Albumin Globulin Ratio 1.3 (1.0-2.8); Alkaline Phosphatase 94 U/L (38-126); Blood Urea Nitrogen 6 mg/dL (7-17); Calcium 8.6 mg/dL (8.4-10.2); Carbon Dioxide 26 mmol/L (22-32); Chloride 102 mmol/L (98-107); Estimated Glomerular Filt Rate > 60 mL/min (>60); Globulin 3.1 g/dL (1.7-4.1); Glucose 144 mg/dL (70-99); HEMOLYSIS < 15 (0-50); Potassium 3.4 mmol/L (3.4-5.1); Sodium 135 mmol/L (137-145); Total Protein 7.2 g/dL (6.3-8.2)
--- NOTE | 2025-05-26 11:54 | P.PN_ITS ---
Subjective Subjective Date Patient Seen: 05/26/25 Time Patient Seen: 11:00 Interval history: Continues to have liquid stool No n/v abd pain controlled Exam Vital Signs (past 8 hours): Oxygen Delivery Method Room Air Oxygen Flow Rate 0 Narrative Exam Narrative: ABD: soft, non-peritoneal, less distended, tympany improved Objective Labs 05/26/25 08:58 05/26/25 08:58 Labs: Laboratory Results - last 24 hr 05/26/25 08:58 WBC 8.4 RBC 4.10 Hgb 11.9 L Hct 35.6 L MCV 86.8 MCH 29.2 MCHC 33.6 RDW 15.7 H Plt Count 254 Neut % (Auto) 67.2 Lymph % (Auto) 23.4 L [place] % (Auto) 7.9 Eos % (Auto) 0.9 L Baso % (Auto) 0.6 Neut # (Auto) 5600 Lymph # (Auto) 2000 [place] # (Auto) 700 Eos # (Auto) 100 Baso # (Auto) 0 Sodium 135 L Potassium 3.4 Chloride 102 Carbon Dioxide 26 BUN 6 L Creatinine 0.61 Estimated GFR > 60 BUN/Creatinine Ratio 9.8 Glucose 144 H Calcium 8.6 Total Bilirubin 0.3 AST 54 H ALT 34 Alkaline Phosphatase 94 Total Protein 7.2 Albumin 4.1 Globulin 3.1 Albumin/Globulin Ratio 1.3 PFSH Medical History Hearing loss (~2017) Plantar warts (~1965) Chronic cough (~2009) Headache Benign familial tremor Shoulder pain Osteoporosis (~2010) Osteopenia Chronic back pain (~2009) Carpal tunnel syndrome (~1983) Mumps (~194) Measles (~1948) Chicken pox (~1948) History of irregular menstrual cycles (~1989) Genital warts (~1969) Chlamydia (~1982) Abnormal Pap smear of cervix (~10/21/00) Hemorrhoid (~1979) Hyperlipidemia (~2002) Depression (~1957) Hormone replacement therapy Surgical History Anesthesia Intestinal adhesions (~02/2012) S/P lumbar fusion (~01/2012) S/P cervical spinal fusion (~2009) History of bunionectomy (~1989) History of cataract removal with insertion of prosthetic lens Family History Father Cirrhosis of liver Social History household members: spouse Smoking Status: Never smoker alcohol intake: never Assessment & Plan Assessment and plan (1) Small bowel obstruction: Status: Acute Plan Advance diet SBO appears to be resolving with conservative mgmt Will see how she tolerates solid food Possible home tomorrow if tolerates regular diet Time-Based Coding :: [TOTAL MINUTES] spent with patient and on the chart (including review of chart, obtaining history, exam, reviewing outside data, placing orders, documenting exam and treatment plan, and counseling patient) on [DATE]. Quality VTE Deep Vein Thrombosis/Pulmonary Embolism Present on Admission: No [facility] PROF[employer] Development Technical Lead Document charge(s): Yes Charge Codes Subsequent inpatient/observation care: [id number]
--- NOTE | 2025-05-26 13:10 | CM.DPC ---
DCP Cont: Per Surgeon, pt making progress and will slowly advance her diet today and if she can tolerate then plan is likely d/c home tomorrow Tuesday. Currently no identified barriers to discharge at this time. MARISELA Lomeli
[2025-05-26 17:06] VITALS: BP 164/82; PULSE 85; RESP 16; TEMP 37; O2SAT 96
[2025-05-26 19:00] VITALS: BP 166/92; PULSE 72; RESP 20; TEMP 36.9; O2SAT 98
--- NOTE | 2025-05-27 06:47 | P.PN_ITS ---
Subjective Subjective Date Patient Seen: 05/27/25 Time Patient Seen: 06:47 Interval history: Tolerated regular diet without n/v Exam Vital Signs (past 8 hours): Oxygen Delivery Method Room Air Oxygen Flow Rate 0 Narrative Exam Narrative: ABD: less distended, no tympany, non-peritoneal, improved abd exam Objective Labs 05/26/25 08:58 05/26/25 08:58 Labs: Laboratory Results - last 24 hr 05/26/25 08:58 WBC 8.4 RBC 4.10 Hgb 11.9 L Hct 35.6 L MCV 86.8 MCH 29.2 MCHC 33.6 RDW 15.7 H Plt Count 254 Neut % (Auto) 67.2 Lymph % (Auto) 23.4 L [place] % (Auto) 7.9 Eos % (Auto) 0.9 L Baso % (Auto) 0.6 Neut # (Auto) 5600 Lymph # (Auto) 2000 [place] # (Auto) 700 Eos # (Auto) 100 Baso # (Auto) 0 Sodium 135 L Potassium 3.4 Chloride 102 Carbon Dioxide 26 BUN 6 L Creatinine 0.61 Estimated GFR > 60 BUN/Creatinine Ratio 9.8 Glucose 144 H Calcium 8.6 Total Bilirubin 0.3 AST 54 H ALT 34 Alkaline Phosphatase 94 Total Protein 7.2 Albumin 4.1 Globulin 3.1 Albumin/Globulin Ratio 1.3 PFSH Medical History Hearing loss (~2017) Plantar warts (~1965) Chronic cough (~2009) Headache Benign familial tremor Shoulder pain Osteoporosis (~2010) Osteopenia Chronic back pain (~2009) Carpal tunnel syndrome (~1983) Mumps (~194) Measles (~1948) Chicken pox (~1948) History of irregular menstrual cycles (~1989) Genital warts (~1969) Chlamydia (~1982) Abnormal Pap smear of cervix (~10/21/00) Hemorrhoid (~1979) Hyperlipidemia (~2002) Depression (~1957) Hormone replacement therapy Surgical History Anesthesia Intestinal adhesions (~02/2012) S/P lumbar fusion (~01/2012) S/P cervical spinal fusion (~2009) History of bunionectomy (~1989) History of cataract removal with insertion of prosthetic lens Family History Father Cirrhosis of liver Social History household members: spouse Smoking Status: Never smoker alcohol intake: never Assessment & Plan Assessment and plan (1) Small bowel obstruction: Status: Acute Plan Tolerated regular diet without n/v OK for d/c home from surgical perspective Time-Based Coding :: [TOTAL MINUTES] spent with patient and on the chart (including review of chart, obtaining history, exam, reviewing outside data, placing orders, documenting exam and treatment plan, and counseling patient) on [DATE]. Quality VTE Deep Vein Thrombosis/Pulmonary Embolism Present on Admission: No [facility] PROFEE Global Clinical Leader Document charge(s): Yes Charge Codes Subsequent inpatient/observation care: [id number]
[2025-05-27 07:35] VITALS: BP 175/90; PULSE 89; RESP 21; TEMP 36.8; O2SAT 97
[2025-05-27] MEDS: VENLAFAXINE ER 75 MG CAP 300 MG PO (08:15)
--- NOTE | 2025-05-27 09:37 | PC.NURSE ---
Patient is demanding, went to the Dr and told him that she wants to go home and told these RNs that she is a priority to get out of the hospital. Explained to Gita we will let the Dr know and then he will come and talk to her about discharging home. She has a high bp of 175/90s, is aware of this. From pass down last night, RN had a hard time with patient as she was demanding and asking for medication that was to early to give. She is calm now and sitting in her chair, waiting to go home.
--- NOTE | 2025-05-27 10:19 | P.PN_ITS ---
Subjective Subjective Date Patient Seen: 05/26/25 Interval history: Chief complaint: Distended stomach nausea and vomiting small-bowel obstruction and heavy stool burden History of present illness: 05/23: 79-year-old female with a history of bowel obstruction status post surgery in 2011 presented with the abdominal pain nausea and vomiting. Findings of the [facility] emergency department: CT with dilated stomach small bowel obstruction and transition point right lower quadrant and significant stool burden White count 94215 with left shift lactate 3.2 The remainder of the hemogram and chemistries were unremarkable Hospital course: 05/24: Passed a Gastrografin all the way through to the rectum and is now having liquid stool NG tube was pulled started on clear liquids per surgery 05/25: Stomach is still quite distended with a lot of gas patient says she has not passing much gas but a little bit of the Gastrografin she is tolerating clear liquid diet and was ambulating 05/26: Tolerated clear liquids stomach is still a bit distended ambulating is passing liquid and some gas Review of systems: No fever or chills rigors No chest pain palpitations shortness for breath cough No urinary symptoms No paresthesia paresis No unusual weight loss or weight gain Physical exam: Elderly female male appearing in obvious discomfort HEENT unremarkable Heart rate and rhythm regular Lungs clear Abdomen soft with bowel sounds tympanitic with gas Bowel sounds scant Neuro nonfocal Extremities no edema Assessment and plan Obstipation and small-bowel obstruction * Resolved small bowel obstruction with Gastrografin challenge * Still awaiting for normal intestinal motility to resume DVT prophylaxis: * Not indicated due to short stay consider starting tomorrow Code status: * Full code blue Disposition: * Probable discharge tomorrow Time based billing: * 35 minutes were involved in evaluation of this patient including [id number] evaluation physical examination discussion with other providers review of objective laboratory and imaging findings including direct visualization of imaging and discussion of the plan with the family members Exam Vital Signs (past 8 hours): - 05/27/25 07:35 Temperature 98.3 F Pulse Rate 89 Respiratory Rate 21 Blood Pressure 175/90 H Pulse Oximetry 97 Oxygen Flow Rate 0 Oxygen Delivery Method Room Air Oxygen Flow Rate 0 Objective Labs 05/26/25 08:58 05/26/25 08:58 [facility] Medical History Hearing loss (~2017) Plantar warts (~1965) Chronic cough (~2009) Headache Benign familial tremor Shoulder pain Osteoporosis (~2010) Osteopenia Chronic back pain (~2009) Carpal tunnel syndrome (~1983) Mumps (~1948) Measles (~1948) Chicken pox (~1948) History of irregular menstrual cycles (~1989) Genital warts (~1969) Chlamydia (~1982) Abnormal Pap smear of cervix (~10/21/00) Hemorrhoid (~1979) Hyperlipidemia (~2002) Depression (~1957) Hormone replacement therapy Surgical History Anesthesia Intestinal adhesions (~02/2012) S/P lumbar fusion (~01/2012) S/P cervical spinal fusion (~2009) History of bunionectomy (~1989) History of cataract removal with insertion of prosthetic lens Family History Father Cirrhosis of liver Social History household members: spouse Smoking Status: Never smoker alcohol intake: never Assessment & Plan Time-Based Coding :: [TOTAL MINUTES] spent with patient and on the chart (including review of chart, obtaining history, exam, reviewing outside data, placing orders, documenting exam and treatment plan, and counseling patient) on [DATE]. Quality VTE Deep Vein Thrombosis/Pulmonary Embolism Present on Admission: No
--- NOTE | 2025-05-27 10:20 | P.DS_ITS ---
History of Present Illness History of Present Illness Date Patient Seen: 05/27/25 Time Patient Seen: 10:20 Chief complaint: Abdominal Pain, Vomiting constipation possible SBO Narrative: Chief complaint: Distended stomach nausea and vomiting small-bowel obstruction and heavy stool burden History of present illness: 05/23: 79-year-old female with a history of bowel obstruction status post surgery in 2011 presented with the abdominal pain nausea and vomiting. Findings of the [facility] emergency department: CT with dilated stomach small bowel obstruction and transition point right lower quadrant and significant stool burden White count 84689 with left shift lactate 3.2 The remainder of the hemogram and chemistries were unremarkable Hospital course: 05/24: Passed a Gastrografin all the way through to the rectum and is now having liquid stool NG tube was pulled started on clear liquids per surgery 05/25: Stomach is still quite distended with a lot of gas patient says she has not passing much gas but a little bit of the Gastrografin she is tolerating clear liquid diet and was ambulating 05/26-05/27 bowel function improved patient discharged to home scheduled MiraLax b.i.d. Review of systems: No fever or chills rigors No chest pain palpitations shortness for breath cough No urinary symptoms No paresthesia paresis No unusual weight loss or weight gain Physical exam: Elderly female male appearing in obvious discomfort HEENT unremarkable Heart rate and rhythm regular Lungs clear Abdomen soft with bowel sounds tympanitic with gas Bowel sounds scant Neuro nonfocal Extremities no edema Assessment and plan Obstipation and small-bowel obstruction * Resolved small bowel obstruction with Gastrografin challenge * Still awaiting for normal intestinal motility to resume DVT prophylaxis: * Not indicated due to short stay consider starting tomorrow Code status: * Full code blue Disposition: * Discharge to home Time based billing: * 35 minutes were involved in evaluation of this patient including [id number] evaluation physical examination discussion with other providers review of objective laboratory and imaging findings including direct visualization of imaging and discussion of the plan with the family members * NPO * IV fluid resuscitation replace electrolytes potassium magnesium phosphorus * Gastrografin challenge tomorrow * Lactate with enemas DVT prophylaxis: * Not indicated due to short stay consider starting tomorrow Code status: * Full code blue Disposition: * Inpatient expect 2-3 days Time based billing: * 55 minutes were involved in evaluation of this patient including [id number] evaluation physical examination discussion with other providers review of objective laboratory and imaging findings including direct visualization of imaging and discussion of the plan with the family members Discharge Providers Provider Date of admission: 05/23/25 08:40 Discharge Date: 05/27/25 Primary care physician: Agnes Scott PA-C Consults: 05/23/25 08:53 Consult to General Surgery Routine Comment: Consulting Provider: Nicholas Lerma Reason for consultation: sbo Has provider been notified: No Discharge provider: Joseph Townsend MD Exam Vital Signs (past 8 hours): - 05/27/25 07:35 Temperature 98.3 F Pulse Rate 89 Respiratory Rate 21 Blood Pressure 175/90 H Pulse Oximetry 97 Oxygen Flow Rate 0 Oxygen Delivery Method Room Air Oxygen Flow Rate 0 Objective Labs 05/26/25 08:58 05/26/25 08:58 PFSH Medical History Hearing loss (~2017) Plantar warts (~1965) Chronic cough (~2009) Headache Benign familial tremor Shoulder pain Osteoporosis (~2010) Osteopenia Chronic back pain (~2009) Carpal tunnel syndrome (~1983) Mumps (~1948) Measles (~1948) Chicken pox (~1948) History of irregular menstrual cycles (~1989) Genital warts (~1969) Chlamydia (~1982) Abnormal Pap smear of cervix (~10/21/00) Hemorrhoid (~1979) Hyperlipidemia (~2002) Depression (~1957) Hormone replacement therapy Surgical History Anesthesia Intestinal adhesions (~02/2012) S/P lumbar fusion (~01/2012) S/P cervical spinal fusion (~2009) History of bunionectomy (~1989) History of cataract removal with insertion of prosthetic lens Family History Father Cirrhosis of liver Social History household members: spouse Smoking Status: Never smoker alcohol intake: never Discharge Plan Discharge Plan Patient Disposition: Home Discharge orders & Medications Prescriptions: New polyethylene glycol 3350 [ClearLax] 17 gram/dose powder 17 g PO BID Qty: 238 0RF Continued estradiol 1 mg tablet 1 mg PO DAILY venlafaxine 150 mg capsule,extended release 24hr 300 mg PO DAILY rosuvastatin 20 mg tablet 10 mg PO DAILY diazepam [Valium] 5 mg tablet 5 mg PO HSP PRN (Reason: anxiety) Qty: 0 primidone 250 mg tablet 375 mg PO DAILY cyclobenzaprine 10 mg tablet 10 mg PO TID PRN (Reason: muscle spasm) Qty: 14 0RF Follow up/Referrals: Agnes Scott PAJosé MiguelC [Primary Care Provider, Medical] Visit Report/Discharge Packet Stand Alone Forms: [employer], Patient Portal/API, Stroke Signs & Symptoms, Influenza Vaccine Info, Notice of Privacy Practices, Inpatient vs Outpatient, Pneumococcal Vaccine Info, Pt. Rights & Responsibilities Discharge Data Primary Care Provider: Agnes Scott Quality VTE Deep Vein Thrombosis/Pulmonary Embolism Present on Admission: No
--- NOTE | 2025-05-27 10:28 | PC.NURSE ---
Pt seen by surgeon this AM and discharged from their care and very eager to receive DC orders from hospitalist. Demanding that she be seen as a priority before other patients; pt informed that we will notify provider that she's eager to be discharged but cannot guarantee that she'll be out by a particular time. Pt declined most of her meds this morning. Hospitalist aware of pt's desire to DC tamara, will continue to monitor.
--- NOTE | 2025-05-27 10:39 | CM.DPNOTE ---
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 per previous CM notes and chart review, no identified barriers to safe dc home at this time. will continue to follow as needed should any arise. dtr to transport home. MARISELA Anthony
== END 2025-05-27 11:29 | disposition home or self-care (01) | DRG 389 ==
LOC: ED 08:40 → AC 08:40
PROVIDERS: Surgery; Admitting Provider Internal Medicine; Emergency Provider Student in an Organized Health Care Education/Training Program; PCP Student in an Organized Health Care Education/Training Program; Referring Provider Emergency Medicine; Visit Provider Internal Medicine
DX: K56.609 Unspecified intestinal obstruction, unspecified as to partial versus complete obstruction (principal); E87.20 Acidosis, unspecified; E86.9 Volume depletion, unspecified; K59.00 Constipation, unspecified; F32.A Depression, unspecified; E78.5 Hyperlipidemia, unspecified; F41.9 Anxiety disorder, unspecified; R11.2 Nausea with vomiting, unspecified
CPT/HCPCS: 36415; 74018; 74019; 74177; 80053; 83605; 83690; 83735; 84100; 85025; 94760; 96374; 99284; J1171; J1650; J2405; J7120; Q9967